=== PATIENT | female | born 1990 | race African-American/Black ===

== ENCOUNTER 2019-04-15 18:21 | Emergency (ER) | payer SELFPAY ==
--- NOTE | ~2019-04-15 | CT_ITS ---
EXAMINATION: CT abdomen pelvis wo con DATE: 04/15/2019 21:27 INDICATION: Epigastric pain TECHNIQUE: Computed tomography (CT) of the abdomen and pelvis was performed without intravenous contr ast. The dose-length product was 1122.17 mGy-cm. Automated exposure control and iterative reconstruct ion technique were employed. COMPARISON: None. FINDINGS: Lung bases are unremarkable. Heart size normal. No significant pleural or pericardial effus ion. The liver, spleen, pancreas, adrenal glands and kidneys are unremarkable. Gallbladder is present . No free air or free fluid. No hydronephrosis. Nonenlarged retroperitoneal lymph nodes are likely re active. Normal gas-filled appendix. No bowel obstruction. No abnormal pelvic masses or fluid collecti ons. No acute osseous abnormality. IMPRESSION: 1. No acute abdominal abnormality. Reviewed, dictated and finalized at location A. R DESIGNER
[2019-04-15 18:29] VITALS: BP 132/96; PULSE 85; RESP 18; TEMP 37.3; O2SAT 100
[2019-04-15 18:44] LABS: Basophils Percent Auto 0.3 % (0.2-1.2); Eosinophils Percent Auto 0.5 % (0-4.4); Hematocrit 36.6 % (37.0-47.0); Immature Granulocyte Absolute 0.02 K/mm3 (0.00-0.031); Immature Granulocyte Percent A 0.3 % (0-0.5); Lymphocytes Percent Auto 17.6 % (18.3-44.2); Mean Corpuscular HGB Conc 32.8 g/dl (32-36); Mean Corpuscular Hemoglobin 30.5 pg (26-34); Mean Corpuscular Volume 93.1 fl (80-100); Mean Platelet Volume 9.9 fl (7.4-10.4); Monocytes Absolute Auto 0.4 K/mm3 (0.1-0.6); Monocytes Percent Auto 4.7 % (2.6-8.5); Neutrophils Absolute Auto 5.7 K/mm3 (1.3-6.7); Neutrophils Percent Auto 76.6 % (45.5-73.1); Platelet Count Result 248 k/mm3 (150-375); Red Blood Count 3.93 M/mm3 (4.2-5.4); Red Cell Distribution Width 14.6 % (11.5-14.5); White Blood Count 7.4 K/mm3 (4.5-10.0)
[2019-04-15 19:00] LABS: Alanine Aminotransferase 23 U/L (4-35); Albumin Level 4.1 g/dL (3.5-5.1); Alkaline Phosphatase 68 U/L (38-126); Aspartate Amino Transferase 46 U/L (14-36); Bilirubin,Total 1.1 mg/dL (0.2-1.3); Blood Urea Nitrogen 7 mg/dL (7-17); Calcium 8.9 mg/dL (8.4-10.2); Carbon Dioxide 25 mmol/L (22-30); Chloride 104 mmol/L (98-107); Estimated Glomerular Filt Rate > 60; Glucose 112 mg/dL (65-105); Lipase 258 U/L (23-300); Potassium 3.5 mmol/L (3.4-5.0); Sodium 140 mmol/L (137-145)
[2019-04-15 20:04] VITALS: BP 143/95; PULSE 85; RESP 18; O2SAT 100
--- NOTE | 2019-04-15 20:23 | ED.ABDPAIN ---
HPI - Abdominal Pain General Chief Complaint: Abdominal Pain Stated Complaint: ABD PAIN Time Seen by Provider: 04/15/19 20:04 Source: patient and RN notes reviewed Mode of arrival: ambulatory Limitations: no limitations History of Present Illness HPI narrative: Pt is a 28 y/o female with a Hx of IBS, who presents to the ED with c/o epigastric pain starting this evening. She notes that she suddenly developed an extreme pain in her epigastric region shortly after eating dinner this evening. Pt describes her pain as cramping, and initially rated her pain at 12/10. She notes that her symptoms felt similar to acid reflux, but states that her symptoms didn't alleviate after taking an antacid. Pt notes that her pain intermittently radiates into her suprapubic region. She reports nausea accompanying her pain, but denies any vomiting, fever, or chills. She notes that her pain is slightly alleviated currently, stating that her pain is now a 4/10. MD elicited complaint: abdominal pain Onset (ago): hour(s) (several) Location: epigastric Pain scale (0-10): 4 Quality: cramping Radiation: suprapubic Associated symptoms: nausea Treatments prior to arrival: antacids Related Data Allergies Allergy/AdvReac Type Severity Reaction Status Date / Time No Known Allergies Allergy Mild Verified 10/11/09 14:16 Review of Systems Review of Systems: All systems reviewed & are unremarkable except as noted in HPI and below Constitutional: Constitutional: Denies chills and Denies fever(s) Gastrointestinal: Gastrointestinal: Reports abdominal pain (epigastric pain radiating into suprapubic region), Reports nausea and Denies vomiting PMFSH Past Medical History Medical History Anxiety Asthma Depression HTN (hypertension) IBS (irritable bowel syndrome) Surgical History Surgical History No significant past surgical history Family History Family History (Updated 10/22/13 @ 07:13 by DOCTOR UNKNOWN) Father Cerebrovascular accident Family history of coronary artery disease Grandparent Cerebrovascular accident Diabetes mellitus Other Family history of malignant neoplasm of male breast Social History Social History Smoking status: Never smoker Second hand tobacco smoke exposure: No Alcohol intake: current Gender identity (if verbalized by the patient): Female Exam Const: General: cooperative, healthy appearing, comfortable, no acute distress, well developed, alert and awake; No confusion Nutritional Appearance: obese Orientation/consciousness: oriented to person, oriented to place, oriented to time, patient oriented x3 and No confusion Limitations: no limitations HENMT: Head: normal to inspection, normocephalic and atraumatic Chest: Chest palpation & inspection: normal inspection of the chest Resp: Effort & Inspection: normal respiratory effort, able to speak in complete sentences, no respiratory distress and not tachypneic Auscultation: clear to auscultation bilaterally, no crackles, no rales, no rhonchi and no wheezes Cardio: Rate: regular rate Rhythm: regular rhythm GI: GI Palp: Yes Tenderness to palpation present (GI) (epigastric tenderness) Auscultation: normal bowel sounds Skin: General skin exam: normal color, no rashes or lesions noted, elasticity normal and turgor normal Neuro: General: oriented to person, oriented to place, oriented to time, patient oriented x3, tone normal, moves all extremities, Normal light touch and pain sensation, no meningeal signs, no focal motor deficits, CN's II-XI intact bilaterally and No confusion Cranial nerves: Yes Equal, round and reactive pupils present Speech: No Abnormal speech present Sensory Exam: No Sensory deficit (Neuro) Extrem: General: normal to inspection, full ROM and capillary refill normal Psych: Appearance: grossly norm
[2019-04-15] MEDS: BELLADONNA ALK/PHENOB ELIX 10 ML, MAG HYDROX/ALUMINUM HYD/SIMETH 30 ML, LIDOCAINE HCL 2... PO (21:00)
[2019-04-15 21:52] VITALS: BP 130/73; PULSE 84; RESP 18; TEMP 36.8; O2SAT 99
[2019-04-15 22:20] LABS: Add Urine Microscopic? YES; Appearance Urine Cloudy (Clear); Bacteria Urine Trace /hpf; Bilirubin Urine Negative (Negative); Blood Urine Negative (Negative); Color Urine Yellow (Yellow); Glucose Urine UA Negative (Negative); Ketones Urine Negative (Negative); Leukocyte Esterase Ur Trace LEU/UL (Negative); Mucus Urine Heavy /lpf; Nitrate Urine Negative (Negative); Protein Urine 1+ mg/dL (Negative); Specific Grav Ur 1.019 (1.001-1.035); Squamous Epithelial Cell Urine Many /hpf (Few)
[2019-04-15 22:57] VITALS: BP 124/77; PULSE 84; RESP 20; O2SAT 100
== END 2019-04-15 22:59 | disposition home or self-care (01) ==
PROVIDERS: Emergency Medicine; Emergency Provider Emergency Medicine
DX: K29.00 Acute gastritis without bleeding (principal); J45.909 Unspecified asthma, uncomplicated; I10 Essential (primary) hypertension; K58.8 Other irritable bowel syndrome
CPT/HCPCS: 36415; 74176; 80053; 81001; 83690; 85025; 99284; A9270

== ENCOUNTER 2020-02-12 08:29 | Emergency (ER) | payer MEDICAID, SELFPAY ==
--- NOTE | ~2020-02-12 | US_ITS ---
US pelvic complete w TV DATE: 02/12/2020 10:31 INDICATION: Pelvic pain TECHNIQUE: Real-time imaging via transabdominal and transvaginal approaches COMPARISON: 04/15/2019 CT abdomen pelvis 05/14/2017 pelvic ultrasound FINDINGS: The uterus is normal in size. The central endometrial echo complex measures up to approxima tely 5.5 mm AP dimension. The right ovary measures 2.5 x 1.5 x 2.7 mm. The left ovary measures 1.4 x 0.8 x 0.8 mm. There is a 10 x 13 mm right ovarian cyst. There is a smaller 4 x 6 mm right ovarian cyst. There is bl ood flow to both ovaries. No pelvic mass or abnormal pelvic fluid collection is detected. IMPRESSION: Right ovarian cysts Reviewed, dictated and finalized at Location A. Reviewed, dictated and finalized at location B. HASING CLERK IMPRESSION: Right ovarian cysts
[2020-02-12 08:37] VITALS: BP 148/104; PULSE 99; RESP 16; TEMP 35.8; O2SAT 99
--- NOTE | 2020-02-12 08:41 | ED.ABDPAIN ---
HPI - Abdominal Pain General Chief Complaint: Abdominal Pain Stated Complaint: abd pain Time Seen by Provider: 02/12/20 08:40 Source: patient Mode of arrival: ambulatory Limitations: no limitations History of Present Illness HPI narrative: Patient is a 29-year-old female with a history of gastritis, ovarian cysts, who presents for evaluation of lower pelvic pain. Patient states she has had a 1 month history of intermittent lower abdominal pain, cramping mostly in the pelvic region, associated with nausea and vomiting today which prompted her visit to the ER. She has had decreased oral intake. She states the pain is dull, aching in nature. She denies new vaginal discharge, bleeding or spotting. Patient follows with Dr. Sally Jefferson, has a pelvic ultrasound which is ordered, but they were trialing hormonal therapy, oral contraceptive to see if that would perhaps improve her symptoms over the past month. Because it did not, she was prompted to come to the emergency department today. She denies fever, chills, cough or shortness of breath. She is amenorrheic since 2016 due to a [address]planon in place. She denies any new sexual partners. She has a history of chlamydia which was treated. Related Data Home Medications Medication Instructions Recorded Confirmed albuterol sulfate 90 mcg/actuation 1 inh INHALATION Q4H 12/29/19 aerosol inhaler etonogestrel 68 mg subdermal 1 implant SUBDERMAL ONCE 12/29/19 implant Allergies Allergy/AdvReac Type Severity Reaction Status Date / Time No Known Allergies Allergy Mild Verified 02/02/20 10:45 Review of Systems Review of Systems: Narrative: CONSTITUTIONAL: Denies fever, chills, or sweats. EYES: Denies visual changes, redness, or discharge. ENT: Denies rhinorrhea, congestion, sore throat, or otalgia. CARDIOVASCULAR: Denies chest pain, palpitations, or edema. RESPIRATORY: Denies cough or dyspnea. GASTROINTESTINAL: Reports pelvic pain, nausea, vomiting, denies diarrhea GENITOURINARY: Denies dysuria or hematuria. SKIN: Denies rash or itching. MUSCULOSKELETAL: Denies back pain, joint pain, or myalgia. NEUROLOGIC: Denies headache, numbness, or weakness. [facility] Past Medical History Medical History (Updated 02/12/20 @ 11:28 by Lizy Mayo MD) Anxiety Asthma Depression HTN (hypertension) IBS (irritable bowel syndrome) Pelvic pain Surgical History Surgical History No significant past surgical history Family History Family History Father Cerebrovascular accident Family history of coronary artery disease Grandparent Cerebrovascular accident Diabetes mellitus Other Family history of malignant neoplasm of male breast Social History Social History Smoking status: Never smoker Second hand tobacco smoke exposure: No Alcohol intake: current Gender identity (if verbalized by the patient): Female Exam Narrative: Exam Narrative: GENERAL: Awake, alert, conversant HEAD: Normocephalic, atraumatic. EYES: PERRLA and EOMI. ENT: Nares clear, no rhinorrhea or epistaxis. Mucous membranes moist. NECK: Supple. CHEST: No respiratory distress, breathing even and non labored HEART: Regular rate, sinus rhythm ABDOMEN:Non distended, nontender on exam, no reproducible tenderness in any of the 4 quadrants, no suprapubic tenderness, no rebound, no guarding : Labia majora and minora normal without lesions. Vagina without blood. No cervical motion tenderness. No adnexal tenderness or fullness bilaterally. No discharge present. EXTREMITIES: Normal range of motion. No edema. SKIN: Warm, dry, no rash. NEURO:No focal deficits. Alert and oriented x3 Course Vital Signs Vital signs: Vital Signs Temperature 35.8 C L 02/12/20 08:37 Pulse Rate 99 02/12/20 08:37 Respiratory Rate 16 02/12/20 08:37 Blood Pres
--- NOTE | 2020-02-12 08:47 | PC.NURSE ---
ATTEMPTED IV AT THIS TIME, PT REPORTS SHE IS DIFFICULT STICK, AFTER INSERTING NEEDLE PT STATES TO TAKE IT OUT RIGHT NOW, IM TOO HOT. i REMOVED NEEDLE AND PT LAUGHS AND SAYS I CAN'T DO THIS. RN ISAIAH AWARE, STATES SHE WILL SEE PT.
[2020-02-12 10:05] LABS: Basophils Percent Auto 0.3 % (0.2-1.2); Eosinophils Absolute Auto 0.1 K/mm3 (0-0.3); Eosinophils Percent Auto 0.9 % (0-4.4); Hematocrit 40.2 % (37.0-47.0); Hemoglobin 13.1 g/dL (12.0-15.0); Immature Granulocyte Absolute 0.02 K/mm3 (0.00-0.031); Immature Granulocyte Percent A 0.3 % (0-0.5); Lymphocytes Absolute Auto 1.65 K/mm3 (0.9-3.2); Lymphocytes Percent Auto 21.2 % (18.3-44.2); Mean Corpuscular HGB Conc 32.6 g/dl (32-36); Mean Corpuscular Hemoglobin 30.4 pg (26-34); Mean Corpuscular Volume 93.3 fl (80-100); Monocytes Absolute Auto 0.4 K/mm3 (0.1-0.6); Monocytes Percent Auto 5.7 % (2.6-8.5); Neutrophils Absolute Auto 5.6 K/mm3 (1.3-6.7); Neutrophils Percent Auto 71.6 % (45.5-73.1); Platelet Count Result 320 k/mm3 (150-375); Red Blood Count 4.31 M/mm3 (4.2-5.4); Red Cell Distribution Width 14.2 % (11.5-14.5); White Blood Count 7.8 K/mm3 (4.5-10.0)
[2020-02-12 10:15] LABS: Add Urine Microscopic? YES; Appearance Urine Cloudy (Clear); Bacteria Urine Trace /hpf; Bilirubin Urine Negative (Negative); Blood Urine Negative (Negative); Calcium Oxalate Crystals Urine Present /hpf; Color Urine Yellow (Yellow); Glucose Urine UA Negative (Negative); Ketones Urine Negative (Negative); Leukocyte Esterase Ur Negative LEU/UL (Negative); Mucus Urine Heavy /lpf; Nitrate Urine Negative (Negative); Protein Urine Negative (Negative); RBC Urine 0-2 /hpf (0-2); Specific Grav Ur 1.024 (1.001-1.035); Squamous Epithelial Cell Urine Many /hpf (Few); WBC Urine 0-3 /hpf
[2020-02-12 10:22] LABS: Alanine Aminotransferase 15 U/L (4-35); Albumin Level 4.5 g/dL (3.5-5.1); Alkaline Phosphatase 71 U/L (38-126); Anion Gap 7 mmol/L (8-16); Aspartate Amino Transferase 22 U/L (14-36); Bilirubin,Total 0.6 mg/dL (0.2-1.3); Blood Urea Nitrogen 10 mg/dL (7-17); Calcium 9.5 mg/dL (8.4-10.2); Carbon Dioxide 28 mmol/L (22-30); Chloride 108 mmol/L (98-107); Estimated CRCL calculation 108 ml/min; Estimated Glomerular Filt Rate > 60; Glucose 102 mg/dL (65-105); Lipase 191 U/L (23-300); Potassium 3.5 mmol/L (3.4-5.0); Sodium 143 mmol/L (137-145)
[2020-02-12 11:05] VITALS: BP 151/89; PULSE 71; RESP 18; O2SAT 100
== END 2020-02-12 11:47 | disposition home or self-care (01) ==
PROVIDERS: Emergency Provider Emergency Medicine
DX: R10.2 Pelvic and perineal pain (principal); N83.201 Unspecified ovarian cyst, right side; I10 Essential (primary) hypertension; J45.909 Unspecified asthma, uncomplicated
CPT/HCPCS: 36415; 76830; 76856; 80053; 81001; 81025; 83690; 85025; 87070; 87491; 87591; 87808; 99284

== ENCOUNTER 2020-02-21 11:12 | Emergency (ER) | payer MEDICAID, SELFPAY ==
--- NOTE | ~2020-02-21 | CT_ITS ---
EXAMINATION: CT abdomen pelvis wo con EXAM DATE: 02/21/2020 12:54 INDICATION: Possible hernias. Low abdominal pain. TECHNIQUE: Spiral CT of the abdomen and pelvis was performed without contrast. Axial, coronal and s agittal images were reviewed. The dose-length product (DLP) for this examination was 1237.74 mGy-cm. The exposure was tailored according to patient size (auto mA exposure control), and iterative recon struction (ASIR) was used as additional dose reduction technique. Comparison is made to prior examina tion from 10/14/2019. FINDINGS: The liver, spleen, adrenal glands and pancreas are unremarkable. Gallbladder is unremarkab le. No biliary obstruction. There is no nephrolithiasis or hydronephrosis. The uterus and ovaries are unremarkable, no adnexal mass. The bladder is unremarkable. There is no retroperitoneal or pel jarrod lymphadenopathy. No abdominal wall hernias. The appendix is normal. The stomach and small bowel are unremarkable. There is expected amount of c olonic stool. No free intraperitoneal gas. The heart is normal in size. There are no pericardial or pleural effusions. There are punctate basilar nodules with mild diffuse groundglass attenuation to the lungs. Nonspecifi c pneumonitis (hypersensitivity?). Small amount of right basilar subsegmental atelectasis. There are no osteoblastic or osteolytic lesions identified. IMPRESSION: 1. No acute intra-abdominal findings. No hernia. 2. Scattered basilar punctate nodules, diffuse mild groundglass attenuation are nonspecific pneumonit is. Reviewed, dictated and finalized at location A. PL SQL DEVELOPER IMPRESSION: 1. No acute intra-abdominal findings. No hernia. 2. Scattered basilar punctate nodules, diffuse mild groundglass attenuation are nonspecific pneumonitis.
[2020-02-21 11:15] VITALS: BP 145/102; PULSE 95; RESP 18; TEMP 36.2; O2SAT 100
--- NOTE | 2020-02-21 11:29 | ED.GENADULT ---
HPI - General Adult General Chief complaint: Abdominal Pain Stated complaint: abd pain Time Seen by Provider: 02/21/20 11:23 Source: patient Mode of arrival: ambulatory Limitations: no limitations History of Present Illness HPI narrative: This 29-year-old female is here for evaluation again of chronic lower pelvic pain. She has been seen by this emergency room as well as a business support professional for the same complaint. She states that the pain gets worse the longer she stands. It is across her lower pelvis. She has been taking the previously prescribed pain medication with no relief. She has had an ultrasound that showed ovarian cysts, and a CT of the abdomen in August that showed no pathology. She denies any bladder or bowel dysfunction, no vaginal discharge, no shortness of breath or chest pain. Onset (ago): week(s) Associated symptoms: nausea/vomiting Treatments prior to arrival: other (previously prescribed pain medication) Related Data Home Medications Medication Instructions Recorded Confirmed albuterol sulfate 90 mcg/actuation 1 inh INHALATION Q4H 12/29/19 aerosol inhaler etonogestrel 68 mg subdermal 1 implant SUBDERMAL ONCE 12/29/19 implant Allergies Allergy/AdvReac Type Severity Reaction Status Date / Time No Known Allergies Allergy Mild Verified 02/21/20 11:41 Review of Systems Review of Systems: All systems reviewed & are unremarkable except as noted in HPI and below PMFSH Past Medical History Medical History Anxiety Asthma Depression HTN (hypertension) IBS (irritable bowel syndrome) Pelvic pain Surgical History Surgical History No significant past surgical history Family History Family History Father Cerebrovascular accident Family history of coronary artery disease Grandparent Cerebrovascular accident Diabetes mellitus Other Family history of malignant neoplasm of male breast Social History Social History Smoking status: Never smoker Second hand tobacco smoke exposure: No Alcohol intake: current Gender identity (if verbalized by the patient): Female Exam Const: General: no acute distress and alert HENMT: Head: normal to inspection Eyes: Pupils: Equal, round and reactive pupils present Resp: Effort & Inspection: normal respiratory effort Auscultation: clear to auscultation bilaterally Cardio: Rate: regular rate Rhythm: regular rhythm GI: GI Palp: Yes Soft to palpation and Yes Tenderness to palpation present (GI) (lower pelvis) Auscultation: normal bowel sounds Other: panus and difficulty to asses for hernia : General: Yes no CVA tenderness Skin: General skin exam: normal color Extrem: General: normal to inspection and no pedal edema Psych: Mental Status: mental status grossly normal Course Course Emergency Course: Radiology and lab results reviewed with patient. From lab standpoint she does have a slightly elevated lipase, no evidence of gallstones on CT. Given her nausea in the morning recommend that she follow a low-fat diet for possible gallbladder disease. As for her pain that worsens as she stands for long periods of time, her CT did not show any evidence of hernia. Recommend that she follow-up with a primary care physician for possible referral to physical therapy as this may be a core issue. Continue to take ibuprofen or Tylenol for the pain. Plan discussed with the patient she agrees. Vital Signs Vital signs: Vital Signs Temperature 36.2 C L 02/21/20 11:15 Pulse Rate 95 02/21/20 11:15 Respiratory Rate 18 02/21/20 11:15 Blood Pressure 145/102 H 02/21/20 11:15 Pulse Oximetry 100 02/21/20 11:15 Temperature 36.2 C L 02/21/20 11:15 Pulse Rate 95 02/21/20 11:15 Respiratory Rate 18 02/21/20 11:15 B
[2020-02-21 11:41] LABS: Basophils Percent Auto 0.2 % (0.2-1.2); Eosinophils Absolute Auto 0.1 K/mm3 (0-0.3); Eosinophils Percent Auto 0.6 % (0-4.4); Hematocrit 39.5 % (37.0-47.0); Hemoglobin 13.2 g/dL (12.0-15.0); Immature Granulocyte Absolute 0.03 K/mm3 (0.00-0.031); Immature Granulocyte Percent A 0.3 % (0-0.5); Lymphocytes Absolute Auto 1.79 K/mm3 (0.9-3.2); Lymphocytes Percent Auto 18.2 % (18.3-44.2); Mean Corpuscular HGB Conc 33.4 g/dl (32-36); Mean Corpuscular Volume 92.7 fl (80-100); Mean Platelet Volume 9.6 fl (7.4-10.4); Monocytes Absolute Auto 0.6 K/mm3 (0.1-0.6); Monocytes Percent Auto 6.5 % (2.6-8.5); Neutrophils Absolute Auto 7.3 K/mm3 (1.3-6.7); Neutrophils Percent Auto 74.2 % (45.5-73.1); Platelet Count Result 312 k/mm3 (150-375); Red Blood Count 4.26 M/mm3 (4.2-5.4); Red Cell Distribution Width 14.5 % (11.5-14.5); White Blood Count 9.8 K/mm3 (4.5-10.0)
[2020-02-21 11:53] LABS: Add Urine Microscopic? YES; Alanine Aminotransferase 15 U/L (4-35); Albumin Level 4.2 g/dL (3.5-5.1); Alkaline Phosphatase 69 U/L (38-126); Anion Gap 9 mmol/L (8-16); Appearance Urine Cloudy (Clear); Aspartate Amino Transferase 17 U/L (14-36); Bilirubin Urine Negative (Negative); Bilirubin,Total 0.6 mg/dL (0.2-1.3); Blood Urea Nitrogen 11 mg/dL (7-17); Blood Urine Negative (Negative); Calcium 8.9 mg/dL (8.4-10.2); Calcium Oxalate Crystals Urine Present /hpf; Carbon Dioxide 25 mmol/L (22-30); Chloride 107 mmol/L (98-107); Color Urine Yellow (Yellow); Estimated CRCL calculation 120 ml/min; Estimated Glomerular Filt Rate > 60; Glucose 104 mg/dL (65-105); Glucose Urine UA Negative (Negative); Ketones Urine Negative (Negative); Leukocyte Esterase Ur Negative LEU/UL (Negative); Lipase 406 U/L (23-300); Nitrate Urine Negative (Negative); Potassium 3.6 mmol/L (3.4-5.0); Protein Urine 1+ mg/dL (Negative); Sodium 141 mmol/L (137-145); Squamous Epithelial Cell Urine Rare /hpf (Few); WBC Urine 0-3 /hpf
[2020-02-21 13:38] VITALS: BP 138/83; PULSE 68; RESP 20; O2SAT 99
== END 2020-02-21 13:39 | disposition home or self-care (01) ==
PROVIDERS: Emergency Provider Emergency Medicine
DX: R10.2 Pelvic and perineal pain (principal); R11.0 Nausea; J45.909 Unspecified asthma, uncomplicated; I10 Essential (primary) hypertension; K58.9 Irritable bowel syndrome, unspecified
CPT/HCPCS: 36415; 74176; 80053; 81001; 81025; 83690; 85025; 99284

== ENCOUNTER 2020-06-17 07:27 | Outpatient (CLI) | payer BC, SELFPAY ==
--- NOTE | ~2020-06-17 | CT_ITS ---
EXAMINATION: CT abdomen pelvis w con DATE: 06/17/2020 07:57 INDICATION: Abdominal pain. TECHNIQUE: Computed tomography (CT) of the abdomen and pelvis was performed with 100 mL Omnipaque 350 intravenous contrast. Automated exposure control and iterative reconstruction technique were employe d. The dose-length product was 886.79 mGy-cm. COMPARISON: CT abdomen and pelvis 02/21/2020 FINDINGS: The visualized portions of the lung bases demonstrate mild atelectasis. No pleural effusion . The heart size is normal. No pericardial effusion. The liver, gallbladder, and pancreas are normal. Calcifications in the spleen are consistent with old granulomatous disease. The adrenal glands and k idneys are normal. There are no dilated loops of bowel. The appendix is normal. There are no patholog ically enlarged lymph nodes. There is no free intraperitoneal fluid. There is mild thoracolumbar spon dylosis. IMPRESSION: 1. No etiology for the patient's symptoms. Reviewed, dictated and finalized at location D.
[2020-06-17 07:49] LABS: Estimated Glomerular Filt Rate > 60
== END 2020-06-17 07:28 | disposition home or self-care (01) ==
LOC: ANHIMG 07:30
PROVIDERS: PCP Emergency Medicine; Visit Provider Emergency Medicine
DX: R10.9 Unspecified abdominal pain (principal)
CPT/HCPCS: 74177; Q9967

== ENCOUNTER 2020-06-24 07:54 | Outpatient (CLI) | payer BC, SELFPAY ==
--- NOTE | ~2020-06-24 | NM_ITS ---
EXAM: NM gastric emptying study DATE: 06/24/2020 12:43 INDICATION: Abdominal pain. TECHNIQUE: A gastric emptying study was performed using the methodology of Fabian HAMMOND, et al. J Nucl Med 2007; 48:568-572. The patient was given a meal consisting of 2 scrambled eggs labeled with 0.964 mCi Tc-99m sulfur colloid, 2 slices of toast, two packages of jam, and approximately 120 mL of water . Simultaneous anterior and posterior 1-min images of the abdomen were obtained with the patient supi ne at multiple time points over a total period of 4 hours. The geometric mean of anterior and posteri or views was determined, and the percentage retention was calculated for each time point. COMPARISON: CT abdomen and pelvis 06/17/2020 FINDINGS: Gastric retention of the radiotracer-labeled meal was 51%, 29%, and 15% at the 1-hour, 2-h our, and 4-hour time points, respectively. With this technique, apparent rapid gastric emptying is vee ggested by <30% gastric retention at 1 hour. Delayed gastric emptying is defined by gastric retention of >90% at 1 hour, >60% retention at 2 hours, or >10% retention at 4 hours. IMPRESSION: 1. Delayed gastric emptying. Reviewed, dictated and finalized at location A.
== END 2020-06-24 07:55 | disposition home or self-care (01) ==
PROVIDERS: PCP Emergency Medicine; Visit Provider Emergency Medicine
DX: R10.9 Unspecified abdominal pain (principal); K30 Functional dyspepsia
CPT/HCPCS: 78264; A9541

== ENCOUNTER 2020-07-12 10:04 | Outpatient (CLI) | payer BC, SELFPAY ==
[2020-07-12 10:47] LABS: Alanine Aminotransferase 15 U/L (4-35); Albumin Level 3.9 g/dL (3.5-5.1); Alkaline Phosphatase 61 U/L (38-126); Amylase 83 U/L (30-110); Anion Gap 5 mmol/L (8-16); Aspartate Amino Transferase 22 U/L (14-36); Bilirubin,Total 0.4 mg/dL (0.2-1.3); Blood Urea Nitrogen 12 mg/dL (7-17); Carbon Dioxide 26 mmol/L (22-30); Chloride 111 mmol/L (98-107); Cholesterol 183 mg/dL (0-200); Estimated Glomerular Filt Rate > 60; Glucose 101 mg/dL (65-105); HDL Direct 35 mg/dL; Lipase 267 U/L (23-300); Potassium 3.7 mmol/L (3.4-5.0); Sodium 142 mmol/L (137-145); Triglycerides 80 mg/dL (<150)
[2020-07-12 10:58] LABS: LDL Cholesterol Direct 125 mg/dL
[2020-07-12 11:19] LABS: Add Urine Microscopic? YES; Amorphous Sediment Urine Few; Appearance Urine Cloudy (Clear); Bacteria Urine Trace /hpf; Bilirubin Urine Negative (Negative); Blood Urine Negative (Negative); Calcium Oxalate Crystals Urine Many /hpf; Color Urine Yellow (Yellow); Glucose Urine UA Negative (Negative); Ketones Urine Negative (Negative); Leukocyte Esterase Ur Trace LEU/UL (Negative); Mucus Urine Few /lpf; Nitrate Urine Positive (Negative); Protein Urine 1+ mg/dL (Negative); Specific Grav Ur 1.026 (1.001-1.035); Squamous Epithelial Cell Urine Many /hpf (Few); Transitional Epi Cells Urine Rare /hpf (None Seen)
== END 2020-07-12 10:05 | disposition home or self-care (01) ==
PROVIDERS: PCP Emergency Medicine; Visit Provider Surgery
DX: R10.30 Lower abdominal pain, unspecified (principal)
CPT/HCPCS: 36415; 80053; 80061; 81001; 82150; 83690; 87077; 87086; 87088; 87186

== ENCOUNTER 2020-07-16 09:05 | Outpatient (CLI) | payer BC, SELFPAY ==
--- NOTE | ~2020-07-16 | US_ITS ---
EXAMINATION: US abdomen limited DATE: 07/16/2020 09:38 INDICATION: Right upper quadrant pain TECHNIQUE: Multiple grayscale and Doppler ultrasound images of the abdomen were obtained. COMPARISON: None available FINDINGS: Bowel gas obscures visualization of the pancreas. The visualized portions of the pancreas a re unremarkable. The liver is normal with normal echogenicity and echotexture. No surface nodularity. Normal hepatopetal flow in the main portal vein. The gallbladder is normal with no abnormal wall thi ckening, pericholecystic fluid or stones. The normal common bile duct measures 4 mm. There was no son ographic Barroso sign. IMPRESSION: 1. Normal sonographic study of the gallbladder. Reviewed, dictated and finalized at location A.
== END 2020-07-16 09:06 ==
LOC: MICIMG 09:06
PROVIDERS: Visit Provider Surgery
DX: R10.13 Epigastric pain (principal)
CPT/HCPCS: 76705

== ENCOUNTER 2020-07-19 17:13 | Emergency (ER) | payer BC, SELFPAY ==
[2020-07-19 18:47] VITALS: BP 154/94; PULSE 109; RESP 19; TEMP 36.6; O2SAT 100
[2020-07-19 19:20] LABS: Add Urine Microscopic? YES; Appearance Urine Cloudy (Clear); Bacteria Urine Trace /hpf; Bilirubin Urine Negative (Negative); Blood Urine Negative (Negative); Color Urine Yellow (Yellow); Glucose Urine UA Negative (Negative); Ketones Urine Negative (Negative); Leukocyte Esterase Ur Negative LEU/UL (Negative); Mucus Urine Few /lpf; Nitrate Urine Negative (Negative); Protein Urine Negative (Negative); RBC Urine 0-2 /hpf (0-2); Specific Grav Ur 1.017 (1.001-1.035); Squamous Epithelial Cell Urine Rare /hpf (Few); WBC Urine 0-3 /hpf
[2020-07-19 20:49] VITALS: BP 150/92; PULSE 86; RESP 18; TEMP 37.2; O2SAT 100
--- NOTE | 2020-07-19 21:02 | ED.ABDPAIN ---
HPI - Abdominal Pain General Chief Complaint: Abdominal Pain Stated Complaint: Abd Pain / Vomiting Time Seen by Provider: 07/19/20 20:49 Source: patient Mode of arrival: ambulatory Limitations: no limitations History of Present Illness HPI narrative: Patient is a 29 year old female who presents with abdominal pain and nausea. She reports symptoms have been consistent for 6 months. Patient reports seeing multiple doctors and having numerous scans and tests completed without diagnosis. Patient reports most recently seen by Dr. Guzman who recommended patient follow with Dr. Paulson for further evaluation. Patient reports nausea without vomiting and abdominal cramping. She denies other complaints at this time. MD elicited complaint: abdominal pain Related Data Home Medications Medication Instructions Recorded Confirmed albuterol sulfate 90 mcg/actuation 1 inh INHALATION Q4H 12/29/19 07/12/20 aerosol inhaler etonogestrel 68 mg subdermal 1 implant SUBDERMAL ONCE 12/29/19 07/12/20 implant amlodipine 5 mg tablet 5 mg PO DAILY 04/15/20 07/12/20 cholecalciferol (vitamin D3) 1,250 1,250 mcg PO WEEKLY 04/15/20 07/12/20 mcg (50,000 unit) capsule omeprazole 20 mg capsule,delayed 20 mg PO DAILY 04/15/20 07/12/20 release Allergies Allergy/AdvReac Type Severity Reaction Status Date / Time No Known Allergies Allergy Mild Verified 07/12/20 09:04 Review of Systems Review of Systems: Narrative: CONSTITUTIONAL: Denies fever, chills, or sweats. EYES: Denies visual changes, redness, or discharge. ENT: Denies rhinorrhea, congestion, sore throat, or otalgia. CARDIOVASCULAR: Denies chest pain, palpitations, or edema. RESPIRATORY: Denies cough or dyspnea. GASTROINTESTINAL: Reports abdominal pain, nausea, vomiting, denies diarrhea. GENITOURINARY: Denies dysuria or hematuria. SKIN: Denies rash or itching. MUSCULOSKELETAL: Denies back pain, joint pain, or myalgia. NEUROLOGIC: Denies headache, numbness, dizziness, or weakness. PSYCHIATRIC: Denies anxiety or depression. [facility] Past Medical History Medical History Anxiety Asthma Depression GERD (gastroesophageal reflux disease) HTN (hypertension) IBS (irritable bowel syndrome) Pelvic pain Stomach ulcer Surgical History Surgical History No significant past surgical history Family History Family History Father Cerebrovascular accident Family history of coronary artery disease Heart disease Liver cancer Grandparent Cerebrovascular accident Diabetes mellitus Other Cancer Other Family history of malignant neoplasm of male breast Social History Social History Smoking status: Current every day smoker Second hand tobacco smoke exposure: No Alcohol intake: current Gender identity (if verbalized by the patient): Female Comments At the time of signature, I have reviewed and agree with nursing past medical, surgical, social, and family history unless otherwise noted. Please see nursing chart for further information. There is no relevant family history pertinent to the presenting complaint. Exam Narrative: Exam Narrative: GENERAL: Well-appearing, well-nourished, and in no acute distress. HEAD: Normocephalic, atraumatic. EYES: EOMI. No redness or drainage. Conjunctiva are normal. ENT: Mucous membranes pink and moist. Nares clear. No rhinorrhea. TMs normal bilaterally. Throat normal. Uvula midline. NECK: AROM. Supple. No lymphadenopathy. CHEST: No respiratory distress. Clear to auscultation. HEART: Regular rate and rhythm. No murmur appreciated. Normal peripheral pulses. GI: Soft, nontender without rebound, or guarding. No distention. Bowel sounds normal in all quadrants. MUSCULOSKELETAL: No bony tenderness. EXTREMITIES: Normal rang
--- NOTE | 2020-07-19 21:08 | ECG_ITS ---
Measurements Intervals [place] Rate: 76 P: 47 IN: 166 QRS: 5 QRSD: 94 T: -2 QT: 338 QTc: 381 Interpretive Statements SINUS RHYTHM WITH SINUS ARRHYTHMIA EARLY PRECORDIAL R/S TRANSITION NONSPECIFIC T-WAVE ABNORMALITY- ANT/INF LEADS BORDERLINE ECG Electronically Signed On 07-20-2020 6:58:40 CDT by Cm Humphries D.O.
[2020-07-19 21:26] LABS: Basophils Percent Auto 0.4 % (0.2-1.2); Eosinophils Percent Auto 0.4 % (0-4.4); Hematocrit 40.6 % (37.0-47.0); Hemoglobin 13.4 g/dL (12.0-15.0); Immature Granulocyte Absolute 0.01 K/mm3 (0.00-0.031); Immature Granulocyte Percent A 0.2 % (0-0.5); Lymphocytes Absolute Auto 2.34 K/mm3 (0.9-3.2); Lymphocytes Percent Auto 46.1 % (18.3-44.2); Mean Platelet Volume 9.4 fl (7.4-10.4); Monocytes Absolute Auto 0.4 K/mm3 (0.1-0.6); Monocytes Percent Auto 7.3 % (2.6-8.5); Neutrophils Absolute Auto 2.3 K/mm3 (1.3-6.7); Neutrophils Percent Auto 45.6 % (45.5-73.1); Platelet Count Result 315 k/mm3 (150-375); Red Blood Count 4.46 M/mm3 (4.2-5.4); Red Cell Distribution Width 14.7 % (11.5-14.5); White Blood Count 5.1 K/mm3 (4.5-10.0)
[2020-07-19] MEDS: BELLADONNA ALK/PHENOB ELIX 10 ML, MAG HYDROX/ALUMINUM HYD/SIMETH 30 ML, LIDOCAINE HCL 2... PO (21:40)
[2020-07-19 21:42] LABS: Alanine Aminotransferase 13 U/L (4-35); Albumin Level 4.4 g/dL (3.5-5.1); Alkaline Phosphatase 61 U/L (38-126); Anion Gap 7 mmol/L (8-16); Aspartate Amino Transferase 17 U/L (14-36); Bilirubin,Total 0.6 mg/dL (0.2-1.3); Blood Urea Nitrogen 5 mg/dL (7-17); Calcium 9.1 mg/dL (8.4-10.2); Carbon Dioxide 23 mmol/L (22-30); Chloride 111 mmol/L (98-107); Estimated CRCL calculation 123 ml/min; Estimated Glomerular Filt Rate > 60; Glucose 85 mg/dL (65-105); Lipase 326 U/L (23-300); Potassium 3.6 mmol/L (3.4-5.0); Sodium 141 mmol/L (137-145)
[2020-07-19] MEDS: SODIUM CHLORIDE 0.9% IV 1,000 ML 999 ML IV CONT (21:53)
[2020-07-19] MEDS: ONDANSETRON INJ 4 MG/2 ML VIAL IV PUSH (21:55)
[2020-07-19 22:00] VITALS: BP 128/74; PULSE 86; RESP 18; O2SAT 100
[2020-07-19 22:50] VITALS: BP 150/109; PULSE 81; RESP 17; O2SAT 100
== END 2020-07-19 22:50 | disposition home or self-care (01) ==
PROVIDERS: Emergency Medicine; Emergency Provider Nurse Practitioner; PCP Emergency Medicine
DX: R10.84 Generalized abdominal pain (principal); J45.909 Unspecified asthma, uncomplicated; K21.9 Gastro-esophageal reflux disease without esophagitis; I10 Essential (primary) hypertension; K58.9 Irritable bowel syndrome, unspecified; F17.210 Nicotine dependence, cigarettes, uncomplicated
CPT/HCPCS: 36415; 80053; 81001; 81025; 83690; 85025; 93005; 96361; 96374; 99284; A9270; J2405; J7030

== ENCOUNTER 2020-08-22 01:45 | Day surgery (SDC) | payer BC, SELFPAY ==
[2020-08-10 11:06] VITALS: BMI 40.3
[2020-08-22 08:23] VITALS: BP 142/95; PULSE 80; RESP 18; TEMP 35.8; O2SAT 100
--- NOTE | 2020-08-22 08:43 | WPDANESEPPF ---
Anes - Initial Pre Proc Eval Procedure: Operation Date: 08/22/20 09:15 Proposed Procedures p Colonoscopy - Fady Brown MD Date/Time: 08/22/20 08:43 Surgeon: Fady Brown MD Pre Op Diagnosis: diarrhea, abdominal pain, family hx of colon ca Patient Data Age: 29 Gender: F Height: 1.63 m Weight: 104.3 kg Last Vital Signs Temp 96.5 F L 08/22/20 08:23 Pulse 80 08/22/20 08:23 Resp 18 08/22/20 08:23 BP 142/95 H 08/22/20 08:23 Pulse Ox 100 08/22/20 08:23 Allergies Allergy/AdvReac Type Severity Reaction Status Date / Time No Known Allergies Allergy Mild Verified 08/22/20 08:21 Home Medications Medication Instructions Recorded Confirmed Type etonogestrel 68 mg subdermal 1 implant SUBDERMAL ONCE 12/29/19 08/22/20 History implant cholecalciferol (vitamin D3) 1,250 1,250 mcg PO WEEKLY 04/15/20 08/22/20 History mcg (50,000 unit) capsule ondansetron 4 mg PO Q6H PRN #20 tablet 07/19/20 08/22/20 Rx albuterol sulfate [ProAir HFA] 2 puff INHALATION QID PRN 08/10/20 08/22/20 History amlodipine 10 mg PO DAILY 08/10/20 08/22/20 History omeprazole 40 mg PO BID 08/10/20 08/22/20 History Patient hx anesthesia problems: none Family hx anesthesia problems: none PMFSH Past Medical History Medical History (Updated 07/27/20 @ 16:27 by Mile Leblanc APN-C) Anxiety Asthma Depression Elevated lipase GERD (gastroesophageal reflux disease) HTN (hypertension) IBS (irritable bowel syndrome) Pelvic pain Stomach ulcer Surgical History Surgical History No significant past surgical history Family History Family History Father Cerebrovascular accident Family history of coronary artery disease Heart disease Liver cancer Grandparent Cerebrovascular accident Diabetes mellitus Other Cancer Other Family history of malignant neoplasm of male breast Social History Social History Smoking status: Current some day smoker (marijuana) Tobacco type: cigars Second hand tobacco smoke exposure: No Additional smoking assessment comments: cigars every couple of weeks Alcohol intake: current Alcohol use details: occasional Substance use: current Substance use type: marijuana Other substance usage details: once monthly Living arrangements: with family Additional living arrangements comments: lives with mother and sister Gender identity (if verbalized by the patient): Female Spiritual care concerns: No Anes - Eval Final PreProcedure Day of Procedure 08/22/20 08:43 Patient weight: morbidly obese Heart: regular rate and rhythm Lungs: clear to auscultation Airway: Mallampati scale class II Neurological: alert and oriented Last oral intake: >/= 8 hours ASA classification: IV Emergent: no Anesthetic plan: proceed Anesthesia type and monitoring: general GIVS and standard monitoring Informed Consent: The patient's anesthetic plan and its attendant risks and benefits were discussed with the patient/family/POA. Questions were solicited and answers provided to the satisfaction of the patient/family/POA.
--- NOTE | 2020-08-22 08:59 | PM.HPGS ---
History of Present Illness History of Present Illness Consent: Risks, benefits, and alternatives have been discussed and questions answered. Patient agrees to proceed with procedure. Chief complaint: diarrhea, abdominal pain, family hx of colon ca Narrative: Zaynab Carpio is a 29 year old female who was referred because of a change in bowel habits. For about 6 months she has had intermittent but frequent abdominal pains. Often will feel like a heaviness, like a brick. This may last a few hours to a day. Accompanying that she has frequent loose stools. The pain however is not alleviated by having a bowel movement. There has been no blood in her stools. Previous testing has included an EGD showing some gastritis. This was done at [facility] Review of Systems Review of Systems: All systems reviewed & are unremarkable except as noted in HPI and below PMFSH Past Medical History Medical History Anxiety Asthma Depression Elevated lipase GERD (gastroesophageal reflux disease) HTN (hypertension) IBS (irritable bowel syndrome) Pelvic pain Stomach ulcer Surgical History Surgical History No significant past surgical history Family History Family History Father Cerebrovascular accident Family history of coronary artery disease Heart disease Liver cancer Grandparent Cerebrovascular accident Diabetes mellitus Other Cancer Other Family history of malignant neoplasm of male breast Social History Social History Smoking status: Current some day smoker (marijuana) Tobacco type: cigars Second hand tobacco smoke exposure: No Additional smoking assessment comments: cigars every couple of weeks Alcohol intake: current Alcohol use details: occasional Substance use: current Substance use type: marijuana Other substance usage details: once monthly Living arrangements: with family Additional living arrangements comments: lives with mother and sister Gender identity (if verbalized by the patient): Female Spiritual care concerns: No Meds Home Medications and Allergies Home Medications Medication Instructions Recorded Confirmed Type etonogestrel 68 mg subdermal 1 implant SUBDERMAL ONCE 12/29/19 08/22/20 History implant cholecalciferol (vitamin D3) 1,250 1,250 mcg PO WEEKLY 04/15/20 08/22/20 History mcg (50,000 unit) capsule ondansetron 4 mg PO Q6H PRN #20 tablet 07/19/20 08/22/20 Rx albuterol sulfate [ProAir HFA] 2 puff INHALATION QID PRN 08/10/20 08/22/20 History amlodipine 10 mg PO DAILY 08/10/20 08/22/20 History omeprazole 40 mg PO BID 08/10/20 08/22/20 History Allergies Allergy/AdvReac Type Severity Reaction Status Date / Time No Known Allergies Allergy Mild Verified 08/22/20 08:21 Vital Signs Vital Signs - 24 hr 08/22/20 08:23 Temperature 35.8 C L Pulse Rate 80 Respiratory Rate 18 Blood Pressure 142/95 H Pulse Oximetry 100 Exam Resp: Auscultation: clear to auscultation bilaterally Cardio: Rate: regular rate Rhythm: regular rhythm GI: GI Palp: Yes Soft to palpation and No Tenderness to palpation present (GI) Assessment and Plan Assessment and plan (1) Change in bowel habits: Code(s): R19.4 - Change in bowel habit Status: Acute Assessment and Plan: Colonoscopy with possible biopsy or polypectomy or cautery or injection of substances.
[2020-08-22] MEDS: LACTATED RINGERS 1,000 ML 150 ML IV CONT (09:02)
[2020-08-22 09:49] VITALS: BP 140/90; PULSE 84; RESP 23; O2SAT 100
[2020-08-22 09:59] VITALS: BP 149/98; PULSE 87; RESP 20; O2SAT 100
[2020-08-22 10:09] VITALS: BP 142/95; PULSE 75; RESP 18; O2SAT 100
== END 2020-08-22 10:17 | disposition home or self-care (01) ==
PROVIDERS: PCP Emergency Medicine; Visit Provider Internal Medicine Gastroenterology
PROC: 0DJD8ZZ Inspection of Lower Intestinal Tract, Via Natural or Artificial Opening Endoscopic (ICD-10-PCS; CPT 45378; principal; 2020-08-22 09:15)
DX: R19.7 Diarrhea, unspecified (principal); K57.30 Diverticulosis of large intestine without perforation or abscess without bleeding; K63.5 Polyp of colon; I10 Essential (primary) hypertension; J45.909 Unspecified asthma, uncomplicated; F41.8 Other specified anxiety disorders; Z79.51 Long term (current) use of inhaled steroids; F12.90 Cannabis use, unspecified, uncomplicated; Z72.0 Tobacco use; E66.01 Morbid (severe) obesity due to excess calories; Z68.39 Body mass index [BMI] 39.0-39.9, adult
CPT/HCPCS: 45380; 88305; J2704; J7120

== ENCOUNTER 2020-10-28 11:18 | Outpatient (CLI) | payer BC, SELFPAY ==
--- NOTE | ~2020-10-28 | MR_ITS ---
EXAMINATION: MR abdomen wo/w con DATE: 10/28/2020 12:25 INDICATION: Epigastric abdominal pain. TECHNIQUE: Magnetic resonance imaging (MRI) of the abdomen was performed without and with 20 mL Multi Karyn intravenous contrast. Sequences included coronal T2-weighted FS FSE, coronal and axial FS FIEST A, axial T2-weighted FSE, coronal LAVA-flex, axial STIR FSE, axial DWI, axial dual-echo T1-weighted F SPGR, and axial LAVA. Postcontrast sequences included coronal LAVA-flex and a time course of axial LA VA. COMPARISON: CT abdomen and pelvis 06/17/2020 FINDINGS: There are cysts in the liver measuring up to 5 mm. The gallbladder, spleen, pancreas, adrenal glands, and kidneys are normal. There are no dilated loops of bowel. There are no pathologically enlarged ly mph nodes. There is no free intraperitoneal fluid. IMPRESSION: 1. No etiology for the patient's symptoms. Reviewed, dictated and finalized at location A.
[2020-10-28 11:53] LABS: Estimated Glomerular Filt Rate > 60
== END 2020-10-28 11:19 | disposition home or self-care (01) ==
PROVIDERS: PCP Emergency Medicine; Visit Provider Nurse Practitioner Family
DX: R10.13 Epigastric pain (principal); R74.8 Abnormal levels of other serum enzymes
CPT/HCPCS: 74183; A9577

== ENCOUNTER 2020-11-12 11:10 | Emergency (ER) | payer BC, SELFPAY ==
--- NOTE | ~2020-11-12 | CT_ITS ---
EXAMINATION: CT abdomen pelvis w con INDICATION: Mid abdominal pain TECHNIQUE: Computed tomographic images of the abdomen and pelvis were obtained after the administrati on of 100 cc of Omnipaque 350 intravenous contrast. The dose-length product (DLP) was 1105.77 mGy-cm. Automated exposure control and iterative reconstruction technique were employed. COMPARISON: 06/17/2020 FINDINGS: Minimal dependent atelectasis is present in the lung bases. The heart size is normal. The l iver, spleen, pancreas, and adrenal glands are normal. The gallbladder is contracted. The kidneys are unremarkable. No pathologically enlarged abdominal or pelvic lymph nodes are identified. There is no free intraperitoneal gas or evidence of bowel obstruction. The appendix is normal. There is a tiny u mbilical hernia containing fat. There appears to be a small urachal cyst. Mild thoracolumbar spondylo sis is noted. IMPRESSION: 1. No CT correlate for the patient's symptoms. Reviewed, dictated and finalized at location A.
[2020-11-12 11:15] VITALS: BP 158/104; PULSE 99; RESP 18; TEMP 37.1; O2SAT 100
--- NOTE | 2020-11-12 11:34 | ED.ABDPAIN ---
HPI - Abdominal Pain General Chief Complaint: Abdominal Pain Stated Complaint: abd pain Time Seen by Provider: 11/12/20 11:13 Source: RN notes reviewed History of Present Illness HPI narrative: Patient presents emergency room from home for abdominal pain. Patient states pain began 3 days ago and is located in the bilateral mid abdomen described as sharp and stabbing in nature. States is associated with nausea and vomiting as well as loose stool she denies any fevers or chills chest pain shortness of breath or any symptoms states she not taking medication for the pain Related Data Home Medications Medication Instructions Recorded Confirmed etonogestrel 68 mg subdermal 1 implant SUBDERMAL ONCE 12/29/19 08/22/20 implant cholecalciferol (vitamin D3) 1,250 1,250 mcg PO WEEKLY 04/15/20 08/22/20 mcg (50,000 unit) capsule albuterol sulfate [ProAir HFA] 2 puff INHALATION QID PRN 08/10/20 08/22/20 amlodipine 10 mg PO DAILY 08/10/20 08/22/20 omeprazole 40 mg PO BID 08/10/20 08/22/20 Allergies Allergy/AdvReac Type Severity Reaction Status Date / Time No Known Allergies Allergy Mild Verified 11/12/20 11:21 Review of Systems Review of Systems: Gen.: Denies fevers or chills ENT: Denies congestion Respiratory: Denies shortness of breath or cough CV: Denies chest pain or palpitations GI: See HPI denies burning, urgency, frequency or hematuria Musculoskeletal: Denies back pain or muscle pain Neuro: Denies numbness, tingling, weakness or focal weakness Skin: Denies rash Except as documented, all other systems reviewed and negative [facility] Past Medical History Medical History Anxiety Asthma Depression Elevated lipase GERD (gastroesophageal reflux disease) HTN (hypertension) IBS (irritable bowel syndrome) Pelvic pain Stomach ulcer Surgical History Surgical History No significant past surgical history Family History Family History Father Cerebrovascular accident Family history of coronary artery disease Heart disease Liver cancer Grandparent Cerebrovascular accident Diabetes mellitus Other Cancer Other Family history of malignant neoplasm of male breast Social History Social History Smoking status: Current some day smoker (marijuana) Tobacco type: cigars Second hand tobacco smoke exposure: No Additional smoking assessment comments: cigars every couple of weeks Alcohol intake: current Alcohol use details: occasional Substance use: current Substance use type: marijuana Other substance usage details: once monthly Additional living arrangements comments: lives with mother and sister Gender identity (if verbalized by the patient): Female Spiritual care concerns: No Exam Narrative: APPEARANCE: No acute distress, nontoxic, resting in bed HEENT: Normocephalic, atraumatic, OMM RESPIRATORY: No respiratory distress, clear to auscultation bilaterally with no rhonchi wheezing or rales CARDIOVASCULAR: RRR s murmur ABDOMINAL: Soft nondistended tender palpation in right lower quadrant left lower quadrant no rebound or guarding MUSCULOSKELETAl: Moves all extremities. No clubbing, cyanosis or edema. NEURO: Awake and alert. Following commands, speech normal, no focal deficits SKIN:: Warm, dry. Normal Color PSYCHIATRIC: Normal affect/mood Course Course Emergency Course: Reviewed old records patient has been seen for same performed past Patient states that they are feeling much better at this time. States abdominal pain has improved. Repeat abdominal exam shows the patient's abdomen to be soft with no surgical M present. Discussed with patient results of workup and diagnosis. Discussed need for follow-up with primary care physician, reasons to return to the emergency dep
[2020-11-12 11:47] LABS: Add Urine Microscopic? YES; Appearance Urine Clear (Clear); Bacteria Urine Trace /hpf; Bilirubin Urine Negative (Negative); Blood Urine Negative (Negative); Color Urine Yellow (Yellow); Glucose Urine UA Negative (Negative); Ketones Urine Negative (Negative); Leukocyte Esterase Ur Negative LEU/UL (Negative); Mucus Urine Few /lpf; Nitrate Urine Negative (Negative); Protein Urine 1+ mg/dL (Negative); RBC Urine 0-2 /hpf (0-2); Squamous Epithelial Cell Urine Many /hpf (Few); WBC Urine 0-3 /hpf
[2020-11-12 11:51] LABS: Basophils Percent Auto 0.6 % (0.2-1.2); Eosinophils Absolute Auto 0.1 K/mm3 (0-0.3); Eosinophils Percent Auto 1.7 % (0-4.4); Hematocrit 37.2 % (37.0-47.0); Hemoglobin 12.2 g/dL (12.0-15.0); Immature Granulocyte Absolute 0.01 K/mm3 (0.00-0.031); Immature Granulocyte Percent A 0.1 % (0-0.5); Lymphocytes Absolute Auto 1.69 K/mm3 (0.9-3.2); Lymphocytes Percent Auto 23.9 % (18.3-44.2); Mean Corpuscular HGB Conc 32.8 g/dl (32-36); Mean Corpuscular Hemoglobin 30.9 pg (26-34); Mean Corpuscular Volume 94.2 fl (80-100); Mean Platelet Volume 9.5 fl (7.4-10.4); Monocytes Absolute Auto 0.5 K/mm3 (0.1-0.6); Monocytes Percent Auto 6.5 % (2.6-8.5); Neutrophils Absolute Auto 4.8 K/mm3 (1.3-6.7); Neutrophils Percent Auto 67.2 % (45.5-73.1); Platelet Count Result 283 k/mm3 (150-375); Red Blood Count 3.95 M/mm3 (4.2-5.4); White Blood Count 7.1 K/mm3 (4.5-10.0)
[2020-11-12] MEDS: KETOROLAC 30 MG/ML VIAL (*BKC) IV PUSH (11:51)
[2020-11-12] MEDS: SODIUM CHLORIDE 0.9% IV 1,000 ML 999 ML IV CONT (11:51)
[2020-11-12] MEDS: ONDANSETRON INJ 4 MG/2 ML VIAL IV PUSH (11:51)
[2020-11-12 11:58] LABS: Specific Grav Ur 1.031 (1.001-1.035)
[2020-11-12 12:10] LABS: Alanine Aminotransferase 15 U/L (4-35); Albumin Level 4.1 g/dL (3.5-5.1); Alkaline Phosphatase 71 U/L (38-126); Anion Gap 7 mmol/L (8-16); Aspartate Amino Transferase 19 U/L (14-36); Bilirubin,Total 0.4 mg/dL (0.2-1.3); Blood Urea Nitrogen 14 mg/dL (7-17); Calcium 8.9 mg/dL (8.4-10.2); Carbon Dioxide 26 mmol/L (22-30); Chloride 108 mmol/L (98-107); Estimated CRCL calculation 107 ml/min; Estimated Glomerular Filt Rate > 60; Glucose 111 mg/dL (65-110); Lipase 228 U/L (23-300); Potassium 3.9 mmol/L (3.4-5.0); Sodium 141 mmol/L (137-145)
[2020-11-12 12:15] VITALS: BP 156/89; PULSE 98; RESP 18; O2SAT 100
[2020-11-12 13:15] VITALS: BP 152/86; PULSE 98; RESP 18; O2SAT 100
[2020-11-12 13:55] VITALS: BP 138/84; PULSE 92; RESP 18; TEMP 36.9; O2SAT 100
== END 2020-11-12 13:55 | disposition home or self-care (01) ==
PROVIDERS: Emergency Provider Emergency Medicine; PCP Emergency Medicine
DX: R10.32 Left lower quadrant pain (principal); R10.31 Right lower quadrant pain; J45.909 Unspecified asthma, uncomplicated; I10 Essential (primary) hypertension; K58.9 Irritable bowel syndrome, unspecified; F17.290 Nicotine dependence, other tobacco product, uncomplicated
CPT/HCPCS: 36415; 74177; 80053; 81001; 81025; 83690; 85025; 96361; 96374; 96375; 99284; J1885; J2405; J7030; Q9967

== ENCOUNTER 2021-02-06 13:16 | Outpatient (CLI) | payer BC, SELFPAY ==
[2021-02-06 13:50] LABS: Alanine Aminotransferase 17 U/L (4-35); Albumin Level 4.2 g/dL (3.5-5.1); Alkaline Phosphatase 72 U/L (38-126); Amylase 77 U/L (30-110); Aspartate Amino Transferase 24 U/L (14-36); Bilirubin,Total 0.5 mg/dL (0.2-1.3); Lipase 190 U/L (23-300)
== END 2021-02-06 13:17 | disposition home or self-care (01) ==
LOC: ANHSURGERY 13:19
PROVIDERS: PCP Emergency Medicine; Visit Provider Surgery
DX: Z01.812 Encounter for preprocedural laboratory examination (principal); K81.1 Chronic cholecystitis
CPT/HCPCS: 36415; 80076; 82150; 83690; 86850; 86900; 86901

== ENCOUNTER 2021-02-22 00:26 | Day surgery (SDC) | payer BC, SELFPAY ==
[2021-02-01 15:46] VITALS: BMI 41.1
--- NOTE | 2021-02-01 15:57 | PC.NURSE ---
Report to the Outpatient Waiting Room, entrance under the green pavilion located off [facility], at time 11:30 on date 02/09/21. OR Time: 1:30. - You and your visitor will be asked a series of questions to screen for COVID 19 for your protection. - A mask is required within the hospital. - Only one visitor is allowed at this time. Patient visitors will be guided where to wait when not with patient. Preoperative COVID Testing Requirements: No COVID Test needed if: (proof is required; if not received patient will have Rapid Test prior to entry) - Patient has received COVID Vaccine at least 14 days prior to procedure date or - Patient has positive COVID test result within last 90 days of surgery date. COVID Test needed if above criteria is not met If not COVID vaccinated a COVID test must be conducted within 72 hours of surgery and patient is asked to isolate self from time of testing until procedure. You will go to the [employer] [facility] for your COVID testing. The [employer] [facility] site is located at the corner of [address] [facility]. You will only be called if COVID results are positive and your surgeon may reschedule your elective surgery date. Patients may have clear liquids (water, carbonated beverages, clear teas, apple juice) until 3 hours prior to surgery with a maximum of 20 ounces. - No food from midnight until time of surgery - Infants may have breast milk until 4 hours before surgery, infant formula 6 hours prior to surgery. - Children will be allowed to drink immediately following surgery. If applicable, please bring a bottle or sippy cup to assist with drinking. Juice, water, soda, and popsicles are readily available. For infants on formula, please bring formula the day of surgery. Pacifiers are allowed. Take the following medications with a SIP of water the morning of surgery: AMLODIPINE, INHALER (IF NEEDED) Medications to discontinue per physician: VITAMINS/SUPPLEMENTS Date to take last dose: 02/05/21 Please no make-up, nail syriac, hairspray, perfume, deodorant, or body powder the day of surgery. No jewelry (including any body piercings) or valuables the day of surgery, leave them at home. Please take a shower or bath the night before, or the morning of, surgery with an antibacterial soap. Wear comfortable, loose fitting clothing. Children are encouraged to wear pajamas. HIBICLENS SHOWER - Jewelry must be removed prior to entering the operating room. Rings and piercings that are not removed may be cut off. - The hospital will not accept responsibility for valuables. - Please leave all valuables, including medications, at home the day of surgery. If you are going home after surgery, a licensed front end loader driver must drive you home. - NO public transportation without another adult. - We recommend that an adult stay with you for 24 hours following discharge. - We also recommend that you do not drive, make important decision, drink alcoholic beverages, or take any drugs that were not prescribed by your health care provider for at least 24 hours after your discharge time. For Pediatric surgeries, we recommend two adults accompany the child home (only one inside the building at this time). Follow any additional instructions given to you from your surgeon. Telephone instructions given to NEYMAR CROOK and asked if any additional questions and then verbalized understanding. Patient advised to call surgeon office or pre surgery nurse liaison [phone] if any additional questions.
--- NOTE | 2021-02-14 14:00 | PC.NURSE ---
Report to the Outpatient Waiting Room, entrance under the green pavilion located off [facility], at time ____1030___ on date __02/22/2021 . OR Time: __0 . - You and your visitor will be asked a series of questions to screen for COVID 19 for your protection. - A mask is required within the hospital. - Only one visitor is allowed at this time. Patient visitors will be guided where to wait when not with patient. Preoperative COVID Testing Requirements: No COVID Test needed if: (proof is required; if not received patient will have Rapid Test prior to entry) - Patient has received COVID Vaccine at least 14 days prior to procedure date or - Patient has positive COVID test result within last 90 days of surgery date. COVID Test needed if above criteria is not met If not COVID vaccinated a COVID test must be conducted within 72 hours of surgery and patient is asked to isolate self from time of testing until procedure. You will go to the [facility] for your COVID testing. [facility] is located at the corner of [address] [facility]. You will only be called if COVID results are positive and your surgeon may reschedule your elective surgery date. Patients may have clear liquids (water, carbonated beverages, clear teas, apple juice) until 3 hours prior to surgery with a maximum of 20 ounces. - No food from midnight until time of surgery - Infants may have breast milk until 4 hours before surgery, infant formula 6 hours prior to surgery. - Children will be allowed to drink immediately following surgery. If applicable, please bring a bottle or sippy cup to assist with drinking. Juice, water, soda, and popsicles are readily available. For infants on formula, please bring formula the day of surgery. Pacifiers are allowed. Take the following medications with a SIP of water the morning of surgery: ___Amlodipine Medications to discontinue per physician __Vitamin D Date to take last dose 02/16/2021 Please no make-up, nail persian, hairspray, perfume, deodorant, or body powder the day of surgery. No jewelry (including any body piercings) or valuables the day of surgery, leave them at home. Please take a shower or bath the night before, or the morning of, surgery with an antibacterial soap. Wear comfortable, loose fitting clothing. Children are encouraged to wear pajamas. - Jewelry must be removed prior to entering the operating room. Rings and piercings that are not removed may be cut off. - The hospital will not accept responsibility for valuables. - Please leave all valuables, including medications, at home the day of surgery. If you are going home after surgery, a licensed commercial driver must drive you home. - NO public transportation without another adult. - We recommend that an adult stay with you for 24 hours following discharge. - We also recommend that you do not drive, make important decision, drink alcoholic beverages, or take any drugs that were not prescribed by your health care provider for at least 24 hours after your discharge time. For Pediatric surgeries, we recommend two adults accompany the child home (only one inside the building at this time). Follow any additional instructions given to you from your surgeon. Telephone instructions given to ____patient and asked if any additional questions and then verbalized understanding. Patient advised to call surgeon office or pre surgery nurse liaison [phone] if any additional questions.
--- NOTE | 2021-02-14 14:13 | PC.NURSE ---
Pt states no change in health history/medications since interview of 02/01/2021. New instructions given.
[2021-02-22] VITALS (10 sets, daily range): BP systolic 123–163; BP diastolic 66–97; PULSE 68–115; RESP 15–18; TEMP 36.4–37; O2SAT 95–100
--- NOTE | 2021-02-22 09:58 | WPDHPUPDATE1 ---
History and Physical Update Update Date/Time: 02/22/21 09:58 History and Physical has been reviewed, including an updated exam of the patient. There are NO changes in the patient's condition. Risks, benefits, and alternatives have been discussed and questions answered. Patient agrees to proceed with procedure.
--- NOTE | 2021-02-22 10:42 | WPDANESEPPF ---
Anes - Initial Pre Proc Eval Procedure: Operation Date: 02/22/21 12:30 Proposed Procedures p Laparoscopic Cholecystectomy - Don Weber MD Date/Time: 02/22/21 10:42 Surgeon: Don Weber MD Pre Op Diagnosis: acalculous chronic cholecystitis Patient Data Age: 30 Gender: F Height: 1.63 m Weight: 108.86 kg Allergies Allergy/AdvReac Type Severity Reaction Status Date / Time No Known Allergies Allergy Mild Verified 02/01/21 15:44 Home Medications Medication Instructions Recorded Confirmed Type etonogestrel 68 mg subdermal 1 implant SUBDERMAL ONCE 12/29/19 02/01/21 History implant cholecalciferol (vitamin D3) 1,250 1,250 mcg PO WEEKLY 04/15/20 02/01/21 History mcg (50,000 unit) capsule albuterol sulfate [ProAir HFA] 2 puff INHALATION QID PRN 08/10/20 02/01/21 History amitriptyline 25 mg tablet 25 mg PO QHS #30 tablet 11/16/20 02/01/21 Rx amlodipine 10 mg tablet 20 mg PO DAILY tablet 01/03/21 02/01/21 History omeprazole 40 mg capsule,delayed 40 mg PO BID 90 Days #180 cap 01/03/21 02/01/21 Rx release Patient hx anesthesia problems: none Family hx anesthesia problems: none Results Review: All pre-operative results and documents have been reviewed as part of the pre-operative evaluation. [facility] Past Medical History Medical History Anxiety Asthma Depression Elevated lipase GERD (gastroesophageal reflux disease) HTN (hypertension) IBS (irritable bowel syndrome) Pelvic pain Stomach ulcer Surgical History Surgical History No significant past surgical history Family History Family History Father Cerebrovascular accident Family history of coronary artery disease Heart disease Liver cancer Grandparent Cerebrovascular accident Diabetes mellitus Other Cancer Other Family history of malignant neoplasm of male breast Social History Social History Smoking status: Former smoker Tobacco type: cigars Second hand tobacco smoke exposure: No Smoking end date: 01/23/21 Additional smoking assessment comments: cigars every couple of weeks Alcohol intake: current Alcohol use details: A COUPLE/YEAR Substance use: current Substance use type: marijuana Other substance usage details: EVERY COUPLE WEEKS Living arrangements: with family Additional living arrangements comments: lives with mother and sister Gender identity (if verbalized by the patient): Female Spiritual care concerns: No Anes - Eval Final PreProcedure Day of Procedure 02/22/21 10:42 Patient weight: morbidly obese Heart: regular rate and rhythm Lungs: clear to auscultation and normal air movement Airway: Mallampati scale class II Neurological: alert and oriented Last oral intake: >/= 8 hours ASA classification: III Emergent: no Anesthetic plan: proceed Anesthesia type and monitoring: general ETT and standard monitoring Results Review: All pre-operative results and documents have been reviewed as part of the pre-operative evaluation. Informed Consent: The patient's anesthetic plan and its attendant risks and benefits were discussed with the patient/family/POA. Questions were solicited and answers provided to the satisfaction of the patient/family/POA.
[2021-02-22] MEDS: ACETAMINOPHEN 500 MG TABLET 1000 MG PO (10:55)
[2021-02-22] MEDS: LACTATED RINGERS 1,000 ML 30 ML IV CONT ×2 (11:27→13:18)
[2021-02-22] MEDS: KETOROLAC 15 MG/ML VIAL (*BKC) IV PUSH (11:29)
[2021-02-22] MEDS: ceFAZolin 2 GM/D5W 50 ML 2 GM/50 ML BAG IVPB (12:15)
[2021-02-22] MEDS: BUPIVACAINE/EPINEPHRINE 0.5% 10 ML VIAL 30 ML INFILTRATE (12:28)
--- NOTE | 2021-02-22 13:33 | W.PM.PROC2 ---
Procedure Note - Detailed Date of Procedure 02/22/21 Pre-op Diagnosis acalculous chronic cholecystitis Post-op Diagnosis same Procedure Performed Laparoscopic cholecystectomy Surgeon Don Weber MD [employer] Supervisor Minal WRIGHT Anesthesia general and local (0.5% Marcaine with epinephrine) Indications Patient has had postprandial right upper quadrant abdominal pain associated with nausea for quite a long time. This is worth after fatty meals. She had a negative gallbladder ultrasound but HIDA scan back in March showed a very low gallbladder ejection fraction consistent with chronic cholecystitis. She is taken to surgery now for laparoscopic cholecystectomy. Findings Minimal inflammatory changes were noted. No stones were noted. No biliary ductal dilatation or liver abnormalities were appreciated. Description of Procedure Patient was taken to surgery and induced into general anesthesia. The abdomen is prepped and draped. Trocars were placed in the usual fashion using 0.5% Marcaine with epinephrine and applied Medical optical trocars. A 5 mm camera was used. The gallbladder was decompressed with a laparoscopic aspirator. The cholecystotomy was closed with a Vicryl endoloop. The gallbladder was then retracted anterosuperiorly. Dissection was carried out in the cholecystohepatic triangle. The cystic duct and cystic artery were dissected out very clearly. The gallbladder was dissected off the liver and critical view was achieved. We then securely clipped and divided the cystic duct and cystic artery. The gallbladder was freed from its remaining attachments to the liver. Very little bleeding occurred. We cauterized the gallbladder fossa and made it hemostatic. The gallbladder was placed in an Endo-Catch bag and retrieved through the 10 11 epigastric trocar site. We replaced the epigastric trocar and reviewed the right upper quadrant. All looked good with no evidence of bleeding or bile leakage. We then evacuated CO2 and removed the trocar sleeves. Skin wounds were closed with subcuticular 4-0 Monocryl skin suture. The wounds were dressed with Exofin surgical adhesive. Patient was awakened and taken to recovery in good condition. Sponge and needle counts were correct x2. Estimated Blood Loss -5 Drains No Packing No Pathology yes (Gallbladder) Complications No immediate complications Condition stable Disposition PACU
[2021-02-22] MEDS: oxyCODONE HCL (*CRX) 5 MG TAB IR PO (14:37)
--- NOTE | 2021-02-22 15:21 | SUR.PHASEII ---
PT MEETS DISCHARGE CRITERIA AND IS WAITING FOR HER RIDE TO ARRIVE.
== END 2021-02-22 15:32 | disposition home or self-care (01) ==
PROVIDERS: PCP Emergency Medicine; Visit Provider Surgery
PROC: 0FT44ZZ Resection of Gallbladder, Percutaneous Endoscopic Approach (ICD-10-PCS; CPT 47562; principal; 2021-02-22 12:30)
DX: K81.1 Chronic cholecystitis (principal); I10 Essential (primary) hypertension; F41.8 Other specified anxiety disorders; K58.9 Irritable bowel syndrome, unspecified; K21.9 Gastro-esophageal reflux disease without esophagitis; J45.909 Unspecified asthma, uncomplicated; Z79.51 Long term (current) use of inhaled steroids; F12.90 Cannabis use, unspecified, uncomplicated; F17.290 Nicotine dependence, other tobacco product, uncomplicated; E66.01 Morbid (severe) obesity due to excess calories; Z68.41 Body mass index [BMI] 40.0-44.9, adult
CPT/HCPCS: 47562; 36415; 86850; 86900; 86901; 88304; A9270; C1713; J0330; J0690; J1100; J1170; J1885; J2250; J2405; J2704; J2710; J3010; J7120

== ENCOUNTER 2022-10-09 08:13 | Emergency (ER) | payer SELFPAY ==
[2022-10-09 08:16] VITALS: BP 173/97; PULSE 90; RESP 18; TEMP 36.4; O2SAT 100
[2022-10-09 08:28] VITALS: O2SAT 100
[2022-10-09 08:46] VITALS: O2SAT 100
--- NOTE | 2022-10-09 08:58 | ED.HA ---
HPI - Headache General Chief Complaint: Headache Stated Complaint: headache Time Seen by Provider: 10/09/22 08:14 History of Present Illness HPI Narrative: 32-year-old female presented the ED for evaluation of headache. Patient reports she does have history of sinus infection and migraine headaches. Patient states typically when she gets a headache it does resolve with ibuprofen. Patient states this headache started yesterday about 2 PM and did not respond to her decongestants and anti-inflammatories. Patient does report associated sinus pressure and light sensitivity. Patient denies any falls injuries neck pain or fever. Patient states she is not . Related Data Home Medications Medication Instructions Recorded Confirmed cholecalciferol (vitamin D3) 1,250 1,250 mcg PO WEEKLY 04/15/20 03/13/21 mcg (50,000 unit) capsule albuterol sulfate 90 mcg/actuation 2 puff inhalation QID PRN 08/10/20 03/13/21 aerosol inhaler (ProAir HFA) Shortness Of Breath amlodipine 10 mg tablet 20 mg PO DAILY 01/03/21 03/13/21 etonogestrel 68 mg subdermal 1 implant subdermal ONCE 10/24/21 implant (Nexplanon) Allergies Allergy/AdvReac Type Severity Reaction Status Date / Time No Known Allergies Allergy Mild Verified 10/24/21 13:21 Review of Systems Review of Systems: All systems reviewed & are unremarkable except as noted in HPI and below PMFSH Past Medical History Medical History (Updated 10/09/22 @ 09:56 by Jesús Thompson MD) Anxiety Asthma Cholecystitis Depression Elevated lipase GERD (gastroesophageal reflux disease) Hot flashes HTN (hypertension) IBS (irritable bowel syndrome) Pelvic pain Stomach ulcer Vertigo Surgical History Surgical History History of cholecystectomy Family History Family History Father Cerebrovascular accident Family history of coronary artery disease Heart disease Liver cancer Grandparent Cerebrovascular accident Diabetes mellitus Other Cancer Other Family history of malignant neoplasm of male breast Social History Social History Smoking status: Former smoker Tobacco type: cigars Second hand tobacco smoke exposure: No Smoking end date: 01/23/21 Additional smoking assessment comments: cigars every couple of weeks Alcohol intake: current Alcohol use details: A COUPLE/YEAR Substance use: current Substance use type: marijuana Other substance usage details: EVERY COUPLE WEEKS Living arrangements: with family Additional living arrangements comments: lives with mother and sister Gender identity (if verbalized by the patient): Female Spiritual care concerns: No Exam Narrative: APPEARANCE: Well appearing, no pain, no distress, well-nourished. HEAD: normocephalic, atraumatic. EYES: PERRLA/EOMI, conjunctivae clear. NOSE: Normal no drainage NECK: Supple. No adenopathy, no masses. RESPIRATORY: Airway patent, respirations nonlabored. Clear to auscultation bilaterally, no rales, rhonchi, wheezing. CARDIOVASCULAR: Regular rate and rhythm without murmurs rubs or gallops. ABDOMINAL: Soft, nontender, nondistended, normal bowel sounds MUSCULOSKELETAL: Moves all extremities. Strength/ROM intact, No edema, No calf tenderness. NEURO: Alert. Cranial nerves II through XII intact. Grossly intact SKIN: Warm, dry. Normal Color Course Course Emergency Course: 32-year-old female presented ED for evaluation of headache. Patient was treated with IV saline, IV Toradol, IV Benadryl and IV Compazine. Patient did feel improved with treatment. Patient reports as a follow-up with her primary care physician on Saturday. All questions concerns were addressed. Patient was well-appearing at time of discharge. Vital Signs Vital signs: Vital Signs Temperature 97.6 F 10/09/22 08:16 Pul
[2022-10-09] MEDS: diphenhydrAMINE HCl INJ 50 MG/ML VIAL 25 MG IV PUSH (08:59)
[2022-10-09] MEDS: SODIUM CHLORIDE 0.9% IV 1,000 ML 999 ML IV CONT (08:59)
[2022-10-09] MEDS: PROCHLORPERAZINE EDISYLATE 10 MG/2 ML VIAL IV PUSH (08:59)
[2022-10-09] MEDS: KETOROLAC 15 MG/ML VIAL (*BKC) IV PUSH (09:05)
[2022-10-09 09:08] VITALS: O2SAT 100
[2022-10-09 09:12] VITALS: BP 155/89; PULSE 78; RESP 18
[2022-10-09 09:58] VITALS: BP 139/76; PULSE 80; RESP 18; O2SAT 100
--- NOTE | 2022-10-16 12:20 | PC.NURSE ---
LATE ENTRY This note is being entered to document information to the patient's record. The following information was omitted on 10/09/22, by Stormy Avina RN. Shanta Saline infused total amount 1,000ml with zero left in container with stop time 2487
== END 2022-10-09 10:23 | disposition home or self-care (01) ==
PROVIDERS: Emergency Provider Emergency Medicine; PCP Family Medicine
DX: G43.909 Migraine, unspecified, not intractable, without status migrainosus (principal); I10 Essential (primary) hypertension; J45.909 Unspecified asthma, uncomplicated; K21.9 Gastro-esophageal reflux disease without esophagitis; K58.9 Irritable bowel syndrome, unspecified; Z87.891 Personal history of nicotine dependence; Z90.49 Acquired absence of other specified parts of digestive tract
CPT/HCPCS: 96361; 96374; 96375; 99284; J0780; J1200; J1885; J7030

== ENCOUNTER 2022-10-15 07:53 | Emergency (ER) | payer OTHER, MEDICAID, SELFPAY ==
--- NOTE | ~2022-10-15 | CT_ITS ---
EXAMINATION: CT abdomen pelvis w con DATE: 10/15/2022 11:00 INDICATION: Left upper quadrant pain TECHNIQUE: Computed tomography (CT) of the abdomen and pelvis was performed without intravenous contr ast. The dose-length product was 1234.14 mGy-cm. Automated exposure control and iterative reconstruct ion technique were employed. COMPARISON: CT dated 11/12/2020. FINDINGS: Lung bases are unremarkable. Heart size normal. No significant pleural or pericardial effus ion. No significant vascular abnormality. There are cholecystectomy clips. Status post cholecystectom y. There is a small subcentimeter hypodensity of the right hepatic lobe, most likely benign. The sple en, pancreas, adrenal glands and kidneys are unremarkable. There are cholecystectomy clips. No lympha denopathy. No free air or free fluid. Nonobstructive bowel pattern. No focal bowel abnormalities. Nor mal appendix. No acute osseous abnormality. IMPRESSION: 1. No acute abdominal abnormality. Reviewed, dictated and finalized at location B.
[2022-10-15 07:59] VITALS: BP 142/84; PULSE 91; RESP 18; TEMP 36.7; O2SAT 99
--- NOTE | 2022-10-15 08:33 | ED.GIBLEED ---
HPI - GI Bleed General Chief complaint: GI Bleed Stated complaint: Bloody stool Time Seen by Provider: 10/15/22 08:17 History of Present Illness HPI Narrative: Patient is a 32-year-old female with history of diverticulitis who presents ER with rectal bleeding and abdominal pain. Patient was having symptoms 5 days ago and was started on Cipro/Flagyl by the urgent care. She had had a bloody stool that day where there was a moderate quantity of liquid blood that filled the bowl along with stool. She had similar symptoms today. She continues to have some pain in her left upper quadrant without radiation. No fevers or chills or sweats. No chest pain or chest pressure. She has follow-up with a general surgeon on 10/31/2022. Patient's not on any blood thinners. She has had no dizziness or loss of consciousness. Related Data Home Medications Medication Instructions Recorded Confirmed cholecalciferol (vitamin D3) 1,250 1,250 mcg PO WEEKLY 04/15/20 03/13/21 mcg (50,000 unit) capsule albuterol sulfate 90 mcg/actuation 2 puff inhalation QID PRN 08/10/20 03/13/21 aerosol inhaler (ProAir HFA) Shortness Of Breath amlodipine 10 mg tablet 20 mg PO DAILY 01/03/21 03/13/21 etonogestrel 68 mg subdermal 1 implant subdermal ONCE 10/24/21 implant (Nexplanon) Allergies Allergy/AdvReac Type Severity Reaction Status Date / Time No Known Allergies Allergy Mild Verified 10/15/22 09:00 Review of Systems Review of Systems: All systems reviewed & are unremarkable except as noted in HPI and below Constitutional: Constitutional: Denies chills, Denies fatigue and Denies fever(s) ENT: Denies nasal congestion and Denies sore throat Cardiovascular: Cardiovascular: Denies chest pain, Denies rapid heart rate and Denies radiating jaw, neck or arm pain Respiratory: Respiratory: Denies cough and Denies dyspnea Gastrointestinal: Gastrointestinal: Reports abdominal pain, Denies nausea and Denies vomiting Comments: Blood in stool Neurologic: Denies syncope, Denies focal weakness and Denies numbness PMF Past Medical History Medical History (Updated 10/15/22 @ 12:39 by Dhaval Smith MD) Anxiety Asthma Cholecystitis Depression Elevated lipase GERD (gastroesophageal reflux disease) Hot flashes HTN (hypertension) IBS (irritable bowel syndrome) Pelvic pain Stomach ulcer Vertigo Surgical History Surgical History History of cholecystectomy Family History Family History Father Cerebrovascular accident Family history of coronary artery disease Heart disease Liver cancer Grandparent Cerebrovascular accident Diabetes mellitus Other Cancer Other Family history of malignant neoplasm of male breast Social History Social History Smoking status: Former smoker Tobacco type: cigars Second hand tobacco smoke exposure: No Smoking end date: 01/23/21 Additional smoking assessment comments: cigars every couple of weeks Alcohol intake: current Alcohol use details: A COUPLE/YEAR Substance use: current Substance use type: marijuana Other substance usage details: EVERY COUPLE WEEKS Living arrangements: with family Additional living arrangements comments: lives with mother and sister Gender identity (if verbalized by the patient): Female Spiritual care concerns: No Exam Narrative: GENERAL: Well-appearing, obese, and in no acute distress. HEAD: Normocephalic, atraumatic. ENT: Mucous membranes moist. CHEST: Clear to auscultation. No respiratory distress. HEART: Regular rate and rhythm. Normal peripheral pulses. ABDOMEN: Soft, nontender, nondistended. EXTREMITIES: Normal range of motion. No edema. SKIN: Warm, dry, no rash. NEURO: Alert and oriented x3. PSYCH: Normal mood and affect. Course Course Emergency Course
[2022-10-15 08:58] VITALS: BP 148/106; PULSE 92; RESP 20; O2SAT 100
[2022-10-15 09:38] LABS: Basophils Percent Auto 0.3 % (0.2-1.2); Eosinophils Absolute Auto 0.1 K/mm3 (0-0.3); Eosinophils Percent Auto 0.8 % (0-4.4); Hematocrit 39.4 % (37.0-47.0); Hemoglobin 12.9 g/dL (12.0-15.0); Immature Granulocyte Absolute 0.02 K/mm3 (0.00-0.031); Immature Granulocyte Percent A 0.3 % (0-0.5); Lymphocytes Absolute Auto 1.68 K/mm3 (0.9-3.2); Lymphocytes Percent Auto 26.5 % (18.3-44.2); Mean Corpuscular HGB Conc 32.7 g/dl (32-36); Mean Corpuscular Hemoglobin 30.9 pg (26-34); Mean Corpuscular Volume 94.5 fl (80-100); Mean Platelet Volume 9.4 fl (7.4-10.4); Monocytes Absolute Auto 0.6 K/mm3 (0.1-0.6); Monocytes Percent Auto 9.5 % (2.6-8.5); Neutrophils Percent Auto 62.6 % (45.5-73.1); Platelet Count Result 301 k/mm3 (150-375); Red Blood Count 4.17 M/mm3 (4.2-5.4); Red Cell Distribution Width 15.4 % (11.5-14.5); White Blood Count 6.3 K/mm3 (4.5-10.0)
[2022-10-15 09:48] LABS: INR 0.9; Prothrombin Time 12.7 Seconds (11.1-14.7)
[2022-10-15 09:49] LABS: Partial Thromboplastin Time 29.1 SECONDS (22.3-36.8)
[2022-10-15 09:51] LABS: Alanine Aminotransferase 32 U/L (6-35); Albumin Level 4.2 g/dL (3.5-5.1); Alkaline Phosphatase 73 U/L (38-126); Anion Gap 5 mmol/L (8-16); Aspartate Amino Transferase 29 U/L (14-36); Bilirubin,Total 0.5 mg/dL (0.2-1.3); Blood Urea Nitrogen 12 mg/dL (7-17); Calcium 8.5 mg/dL (8.4-10.2); Carbon Dioxide 23 mmol/L (22-30); Chloride 109 mmol/L (98-107); Estimated CRCL calculation 120 ml/min; Estimated Glomerular Filt Rate > 60; Glucose 107 mg/dL (65-110); Sodium 137 mmol/L (137-145)
[2022-10-15 10:30] VITALS: BP 149/99; PULSE 79; RESP 18; O2SAT 100
[2022-10-15 11:37] VITALS: BP 139/89; PULSE 87; RESP 18; O2SAT 100
[2022-10-15 13:00] VITALS: BP 155/90; PULSE 78; RESP 17; O2SAT 100
== END 2022-10-15 13:01 | disposition home or self-care (01) ==
PROVIDERS: Emergency Provider Emergency Medicine; PCP Family Medicine
DX: K62.5 Hemorrhage of anus and rectum (principal); I10 Essential (primary) hypertension; J45.909 Unspecified asthma, uncomplicated; K21.9 Gastro-esophageal reflux disease without esophagitis; K58.9 Irritable bowel syndrome, unspecified; Z87.891 Personal history of nicotine dependence
CPT/HCPCS: 36415; 74177; 80053; 81025; 85025; 85610; 85730; 99284; Q9967

== ENCOUNTER 2022-11-02 07:52 | Outpatient (CLI) | payer OTHER, SELFPAY ==
[2022-11-06 14:09] LABS: Immunoglobulin A 295 mg/dL (47-310); TTG IGA AB <1.0 U/mL (<15.0)
[2022-11-07 14:56] LABS: ANCA Screen Negative (Negative); Myeloperoxidase Ab <1.0 AI (<1.0); Proteinase-3 Ab <1.0 AI (<1.0); S cerevisiae Ab (IgA) 11.5 U (<=20.0); S cerevisiae Ab (IgG) 17.3 U (<=20.0)
[2022-11-08 18:53] LABS: Calprotectin, Stool 9 mcg/g
== END 2022-11-02 07:53 | disposition home or self-care (01) ==
PROVIDERS: PCP Family Medicine; Visit Provider Internal Medicine Gastroenterology
DX: R10.9 Unspecified abdominal pain (principal); R11.2 Nausea with vomiting, unspecified; K62.5 Hemorrhage of anus and rectum
CPT/HCPCS: 36415; 82784; 83993; 86036; 86364; 86671

== ENCOUNTER 2022-11-13 19:59 | Emergency (ER) | payer OTHER, SELFPAY ==
[2022-11-13 20:50] VITALS: BP 136/85; PULSE 84; RESP 20; TEMP 36.8; O2SAT 100
--- NOTE | 2022-11-13 20:59 | ED.ABDPAIN ---
HPI - Abdominal Pain General Chief Complaint: Abdominal Pain Stated Complaint: abd pain Time Seen by Provider: 11/13/22 20:59 History of Present Illness HPI narrative: Patient presents the emergency department generalized abdominal discomfort she has had this pain intermittently for years. She has been vomiting all day. She cannot go to work because of the emesis. She is requesting a work note. Denies any acute changes. Denies fevers chills. Has Zofran at home for nausea that works intermittently. Related Data Home Medications Medication Instructions Recorded Confirmed cholecalciferol (vitamin D3) 1,250 1,250 mcg PO WEEKLY 04/15/20 10/23/22 mcg (50,000 unit) capsule albuterol sulfate 90 mcg/actuation 2 puff inhalation QID PRN 08/10/20 10/23/22 aerosol inhaler (ProAir HFA) Shortness Of Breath amlodipine 10 mg tablet 20 mg PO DAILY 01/03/21 10/23/22 etonogestrel 68 mg subdermal 1 implant subdermal ONCE 10/24/21 10/23/22 implant (Nexplanon) melatonin 5 mg capsule 10 mg PO .PRN 10/25/22 omeprazole 40 mg capsule,delayed 40 mg PO DAILY 10/25/22 release Allergies Allergy/AdvReac Type Severity Reaction Status Date / Time No Known Allergies Allergy Mild Verified 11/13/22 20:56 Review of Systems Review of Systems: Review of systems negative except what is documented in the HPI [facility] Past Medical History Medical History Anxiety Asthma Cholecystitis Depression Elevated lipase GERD (gastroesophageal reflux disease) Hot flashes HTN (hypertension) IBS (irritable bowel syndrome) Pelvic pain Stomach ulcer Vertigo Surgical History Surgical History History of cholecystectomy Family History Family History Father Cerebrovascular accident Family history of coronary artery disease Heart disease Liver cancer Grandparent Cerebrovascular accident Diabetes mellitus Other Cancer Other Family history of malignant neoplasm of male breast Social History Social History (Updated 10/25/22 @ 10:12 by Mindi Vital MA) Smoking status: Former smoker Tobacco type: cigars Second hand tobacco smoke exposure: No Smoking end date: 01/23/21 Additional smoking assessment comments: cigars every couple of weeks Alcohol intake: current Alcohol use details: A COUPLE/YEAR Substance use: current Substance use type: marijuana Other substance usage details: EVERY COUPLE WEEKS Lack of Transportation: YES Lack of Food: Never True Current Housing: I Have Housing Concerned About Future Housing: No Difficulty Paying Gas/Electric Bills: YES Difficulty Paying for Meds: YES Currently Unemployed: No Education: Trade/Vocational Certificate Difficulty w/ Childcare or Family Care: No Living arrangements: with family Additional living arrangements comments: lives with mother and sister Occupation/Education: occupation Gender identity (if verbalized by the patient): Female Spiritual care concerns: No Exam Narrative: GENERAL: Well-appearing, well-nourished, and in no acute distress. HEAD: Normocephalic, atraumatic. EYES: PERRLA and EOMI. ENT: Nares clear, no rhinorrhea or epistaxis. Mucous membranes moist. NECK: Supple. CHEST: Clear to auscultation. No respiratory distress. HEART: Regular rate and rhythm. ABDOMEN: Soft, nontender, nondistended. EXTREMITIES: Normal range of motion. No edema. SKIN: Warm, dry, no rash. NEURO: No focal deficits. Alert and oriented x3. PSYCH: Normal mood and affect. Course Course Emergency Course: Exam is completely benign abdomen is soft and nontender. Vital signs are stable. Patient is not requesting any work-up just a work note. Will DC Vital Signs Vital signs: Vital Signs Temperature 36.8 C 11/13/22 20:50 Pulse Rate 84 11/13/22 20:50
== END 2022-11-13 21:05 | disposition home or self-care (01) ==
PROVIDERS: Emergency Provider Emergency Medicine; PCP Family Medicine
DX: R10.84 Generalized abdominal pain (principal); I10 Essential (primary) hypertension; Z87.891 Personal history of nicotine dependence
CPT/HCPCS: 99283

== ENCOUNTER 2022-11-21 15:42 | Emergency (ER) | payer OTHER, SELFPAY ==
[2022-11-21 15:54] VITALS: BP 150/92; PULSE 108; RESP 16; TEMP 36.9; O2SAT 100
[2022-11-21 15:56] VITALS: BP 150/92; PULSE 108; RESP 16; TEMP 36.9; O2SAT 100
--- NOTE | 2022-11-21 16:34 | ED.NAVMDI ---
HPI - Nausea/Vomiting/Diarrhea General Chief complaint: Nausea/Vomiting/Diarrhea Stated complaint: NAUSEA/VOMITING/WANTS WORK NOTE Time Seen by Provider: 11/21/22 16:30 Source: patient, RN notes reviewed and old records reviewed Mode of arrival: ambulatory Limitations: no limitations History of Present Illness HPI Narrative: Patient presents today reporting 1 episode of vomiting in 3-4 episodes of diarrhea today. She had to call into work and is requesting a work note to excuse her. Patient has been taking Reglan and Zofran with mild relief. She has been able to keep down water and small amounts of food after her vomiting episode. She does see a [employer] erp developer and is scheduled for a colonoscopy on 11/30/2022 for these ongoing symptoms. Related Data Home Medications Medication Instructions Recorded Confirmed cholecalciferol (vitamin D3) 1,250 1,250 mcg PO WEEKLY 04/15/20 11/21/22 mcg (50,000 unit) capsule albuterol sulfate 90 mcg/actuation 2 puff inhalation QID PRN 08/10/20 11/21/22 aerosol inhaler (ProAir HFA) Shortness Of Breath amlodipine 10 mg tablet 10 mg PO DAILY 01/03/21 11/21/22 etonogestrel 68 mg subdermal 1 implant subdermal ONCE 10/24/21 11/21/22 implant (Nexplanon) melatonin 5 mg capsule 10 mg PO .PRN 10/25/22 11/21/22 omeprazole 40 mg capsule,delayed 40 mg PO DAILY 10/25/22 11/21/22 release aspirin 81 mg tablet,delayed 81 mg PO DAILY 11/21/22 11/21/22 release (Adult Low Dose Aspirin) metoclopramide HCl 10 mg tablet 10 mg PO DIRECTED 11/21/22 11/21/22 Allergies Allergy/AdvReac Type Severity Reaction Status Date / Time No Known Allergies Allergy Mild Verified 11/21/22 15:54 Review of Systems Review of Systems: CONSTITUTIONAL: Denies body aches, fever, chills, or sweats. EYES: Denies visual changes, redness, or discharge. ENT: Denies rhinorrhea, congestion, sore throat, or otalgia. CARDIOVASCULAR: Denies chest pain, palpitations, or edema. RESPIRATORY: Denies cough or dyspnea. GASTROINTESTINAL: Denies abdominal pain. + nausea, vomiting, diarrhea GENITOURINARY: Denies dysuria or hematuria. SKIN: Denies rash, itching, or wounds. MUSCULOSKELETAL: Denies back pain, joint pain, or myalgia. NEUROLOGIC: Denies headache, numbness, tingling, or weakness. PSYCH: Denies depression or anxiety. [facility] Past Medical History Medical History Anxiety Asthma Cholecystitis Depression Elevated lipase GERD (gastroesophageal reflux disease) Hot flashes HTN (hypertension) IBS (irritable bowel syndrome) Pelvic pain Stomach ulcer Vertigo Surgical History Surgical History History of cholecystectomy Family History Family History Father Cerebrovascular accident Family history of coronary artery disease Heart disease Liver cancer Grandparent Cerebrovascular accident Diabetes mellitus Other Cancer Other Family history of malignant neoplasm of male breast Social History Social History Smoking status: Never smoker Tobacco type: cigars Second hand tobacco smoke exposure: No Smoking end date: 01/23/21 Additional smoking assessment comments: cigars every couple of weeks Alcohol intake: current Drinks per week: 1 Alcohol use details: A COUPLE/YEAR Substance use: current Substance use type: marijuana Other substance usage details: once a month Lack of Transportation: YES Lack of Food: Never True Current Housing: I Have Housing Concerned About Future Housing: No Difficulty Paying Gas/Electric Bills: YES Difficulty Paying for Meds: YES Currently Unemployed: No Education: Trade/Vocational Certificate Difficulty w/ Childcare or Family Care: No Living arrangements: with family Additional living arrangements com
== END 2022-11-21 16:40 | disposition home or self-care (01) ==
PROVIDERS: Emergency Provider Nurse Practitioner; PCP Internal Medicine Gastroenterology
DX: R11.2 Nausea with vomiting, unspecified (principal); R19.7 Diarrhea, unspecified; I10 Essential (primary) hypertension; F41.9 Anxiety disorder, unspecified; F32.A Depression, unspecified; Z79.82 Long term (current) use of aspirin
CPT/HCPCS: 99211; G0463

== ENCOUNTER 2023-02-01 00:40 | Day surgery (SDC) | payer MEDICAID, SELFPAY ==
[2022-11-20 14:53] VITALS: BMI 44.2
--- NOTE | 2022-11-30 10:52 | PM.HPGS ---
History of Present Illness History of Present Illness Consent: Risks, benefits, and alternatives have been discussed and questions answered. Patient agrees to proceed with procedure. Chief complaint: melena Narrative: Zaynab Carpio is a 32 year old female who had recently been to any emergency roomwith rectal bleeding abdominal pain.? Five days prior to that she had been to an urgent care center with the same symptoms and had been started on antibiotics.? She had been passing quite a bit of blood on both those locations.? She apparently had been told that she had of diverticulitis.? CT scan however did not show diverticular disease.? I had performed a colonoscopy on her a little over a year ago which did show diverticular disease.? She is still seen blood occasionally with bowel movements.? The consistency however is back to normal. he has also been dizzy with nausea and has had a few episodes of vomiting when the pain is severe. [facility] Past Medical History Medical History Anxiety Asthma Cholecystitis Depression Elevated lipase GERD (gastroesophageal reflux disease) Hot flashes HTN (hypertension) IBS (irritable bowel syndrome) Pelvic pain Stomach ulcer Vertigo Surgical History Surgical History History of cholecystectomy Family History Family History Father Cerebrovascular accident Family history of coronary artery disease Heart disease Liver cancer Grandparent Cerebrovascular accident Diabetes mellitus Other Cancer Other Family history of malignant neoplasm of male breast Social History Social History Smoking status: Never smoker Tobacco type: cigars Second hand tobacco smoke exposure: No Smoking end date: 01/23/21 Additional smoking assessment comments: cigars every couple of weeks Alcohol intake: current Drinks per week: 1 Alcohol use details: A COUPLE/YEAR Substance use: current Substance use type: marijuana Other substance usage details: once a month Lack of Transportation: YES Lack of Food: Never True Current Housing: I Have Housing Concerned About Future Housing: No Difficulty Paying Gas/Electric Bills: YES Difficulty Paying for Meds: YES Currently Unemployed: No Education: Trade/Vocational Certificate Difficulty w/ Childcare or Family Care: No Living arrangements: with family Additional living arrangements comments: lives with mother and sister Occupation/Education: occupation Gender identity (if verbalized by the patient): Female Spiritual care concerns: No Meds Home Medications and Allergies Home Medications Medication Instructions Recorded Confirmed Type cholecalciferol (vitamin D3) 1,250 1,250 mcg PO WEEKLY 04/15/20 11/21/22 History mcg (50,000 unit) capsule albuterol sulfate 90 mcg/actuation 2 puff inhalation QID PRN 08/10/20 11/21/22 History aerosol inhaler (ProAir HFA) Shortness Of Breath amlodipine 10 mg tablet 10 mg PO DAILY 01/03/21 11/21/22 History etonogestrel 68 mg subdermal 1 implant subdermal ONCE 10/24/21 11/21/22 History implant (Nexplanon) melatonin 5 mg capsule 10 mg PO .PRN 10/25/22 11/21/22 History omeprazole 40 mg capsule,delayed 40 mg PO DAILY 10/25/22 11/21/22 History release aspirin 81 mg tablet,delayed 81 mg PO DAILY 11/21/22 11/21/22 History release (Adult Low Dose Aspirin) metoclopramide HCl 10 mg tablet 10 mg PO DIRECTED 11/21/22 11/21/22 History Allergies Allergy/AdvReac Type Severity Reaction Status Date / Time No Known Allergies Allergy Mild Verified 11/21/22 15:54 Assessment and Plan Assessment and plan (1) Blood in stool: Code(s): K92.1 - Melena Status: Acute Assessment and Plan: Colonoscopy with possible
[2023-01-21 10:19] VITALS: BMI 44.2
--- NOTE | 2023-01-30 10:09 | SUR.PREOP ---
Patient called regarding upcoming procedure. Reviewed preop instructions, appointment times, and procedure prep.
--- NOTE | 2023-01-31 18:02 | PM.HPGS ---
History of Present Illness History of Present Illness Consent: Risks, benefits, and alternatives have been discussed and questions answered. Patient agrees to proceed with procedure. Chief complaint: melena Narrative: Zaynab Carpio is a 32 year old female Who had rectal bleeding and abdominal pain beginning about 3 months ago. the blood is generally bright red. Had slow down for while but restarted. She admits that it sometimes takes her 30 minutes or so to have a bowel movement during which time she sits on the toilet. There is no family history of inflammatory bowel disease or colon cancer. Review of Systems Review of Systems: All systems reviewed & are unremarkable except as noted in HPI and below PMFSH Past Medical History Medical History Anxiety Asthma Cholecystitis Depression Elevated lipase GERD (gastroesophageal reflux disease) Hot flashes HTN (hypertension) IBS (irritable bowel syndrome) Pelvic pain Stomach ulcer Vertigo Surgical History Surgical History History of cholecystectomy Family History Family History Father Cerebrovascular accident Family history of coronary artery disease Heart disease Liver cancer Grandparent Cerebrovascular accident Diabetes mellitus Other Cancer Other Family history of malignant neoplasm of male breast Social History Social History Smoking status: Never smoker Tobacco type: cigars Second hand tobacco smoke exposure: No Smoking end date: 01/23/21 Additional smoking assessment comments: cigars every couple of weeks Alcohol intake: current Drinks per week: 1 Alcohol use details: A COUPLE/YEAR Substance use: current Substance use type: marijuana Other substance usage details: once a month Lack of Transportation: YES Lack of Food: Never True Current Housing: I Have Housing Concerned About Future Housing: No Difficulty Paying Gas/Electric Bills: YES Difficulty Paying for Meds: YES Currently Unemployed: No Education: Trade/Vocational Certificate Difficulty w/ Childcare or Family Care: No Living arrangements: with family Additional living arrangements comments: lives with mother and sister Occupation/Education: occupation Gender identity (if verbalized by the patient): Female Spiritual care concerns: No Meds Home Medications and Allergies Home Medications Medication Instructions Recorded Confirmed Type cholecalciferol (vitamin D3) 1,250 1,250 mcg PO WEEKLY 04/15/20 02/01/23 History mcg (50,000 unit) capsule albuterol sulfate 90 mcg/actuation 2 puff inhalation QID PRN 08/10/20 02/01/23 History aerosol inhaler (ProAir HFA) Shortness Of Breath amlodipine 10 mg tablet 10 mg PO DAILY 01/03/21 02/01/23 History etonogestrel 68 mg subdermal 1 implant subdermal ONCE 10/24/21 02/01/23 History implant (Nexplanon) melatonin 5 mg capsule 10 mg PO .PRN 10/25/22 02/01/23 History omeprazole 40 mg capsule,delayed 40 mg PO DAILY 10/25/22 02/01/23 History release aspirin 81 mg tablet,delayed 81 mg PO DAILY 11/21/22 02/01/23 History release (Adult Low Dose Aspirin) metoclopramide HCl 10 mg tablet 10 mg PO DIRECTED 11/21/22 02/01/23 History Allergies Allergy/AdvReac Type Severity Reaction Status Date / Time No Known Allergies Allergy Mild Verified 02/01/23 13:30 Exam Resp: Auscultation: clear to auscultation bilaterally Cardio: Rate: regular rate Rhythm: regular rhythm GI: GI Palp: Yes Soft to palpation and No Tenderness to palpation present (GI) Assessment and Plan Assessment and plan (1) Blood in stool: Code(s): K92.1 - Melena Status: Acute Assessment and Plan: Colonoscopy with possible biopsy or polypectomy or cautery or injection of subs
[2023-02-01 13:34] VITALS: BP 157/106; PULSE 90; RESP 16; TEMP 36.4; O2SAT 100
--- NOTE | 2023-02-01 13:36 | WPDANESEPPF ---
Anes - Initial Pre Proc Eval Procedure: Operation Date: 02/01/23 14:00 Proposed Procedures p Colonoscopy - Fady Brown MD Date/Time: 02/01/23 13:36 Surgeon: Fady Brown MD Pre Op Diagnosis: melena Patient Data Age: 32 Gender: F Height: 1.63 m Weight: 117 kg Allergies Allergy/AdvReac Type Severity Reaction Status Date / Time No Known Allergies Allergy Mild Verified 02/01/23 13:30 Home Medications Medication Instructions Recorded Confirmed Type cholecalciferol (vitamin D3) 1,250 1,250 mcg PO WEEKLY 04/15/20 02/01/23 History mcg (50,000 unit) capsule albuterol sulfate 90 mcg/actuation 2 puff inhalation QID PRN 08/10/20 02/01/23 History aerosol inhaler (ProAir HFA) Shortness Of Breath amlodipine 10 mg tablet 10 mg PO DAILY 01/03/21 02/01/23 History etonogestrel 68 mg subdermal 1 implant subdermal ONCE 10/24/21 02/01/23 History implant (Nexplanon) melatonin 5 mg capsule 10 mg PO .PRN 10/25/22 02/01/23 History omeprazole 40 mg capsule,delayed 40 mg PO DAILY 10/25/22 02/01/23 History release aspirin 81 mg tablet,delayed 81 mg PO DAILY 11/21/22 02/01/23 History release (Adult Low Dose Aspirin) metoclopramide HCl 10 mg tablet 10 mg PO DIRECTED 11/21/22 02/01/23 History Patient hx anesthesia problems: none Family hx anesthesia problems: none Results Review: All pre-operative results and documents have been reviewed as part of the pre-operative evaluation. [facility] Past Medical History Medical History Anxiety Asthma Cholecystitis Depression Elevated lipase GERD (gastroesophageal reflux disease) Hot flashes HTN (hypertension) IBS (irritable bowel syndrome) Pelvic pain Stomach ulcer Vertigo Surgical History Surgical History History of cholecystectomy Family History Family History Father Cerebrovascular accident Family history of coronary artery disease Heart disease Liver cancer Grandparent Cerebrovascular accident Diabetes mellitus Other Cancer Other Family history of malignant neoplasm of male breast Social History Social History Smoking status: Never smoker Tobacco type: cigars Second hand tobacco smoke exposure: No Smoking end date: 01/23/21 Additional smoking assessment comments: cigars every couple of weeks Alcohol intake: current Drinks per week: 1 Alcohol use details: A COUPLE/YEAR Substance use: current Substance use type: marijuana Other substance usage details: once a month Lack of Transportation: YES Lack of Food: Never True Current Housing: I Have Housing Concerned About Future Housing: No Difficulty Paying Gas/Electric Bills: YES Difficulty Paying for Meds: YES Currently Unemployed: No Education: Trade/Vocational Certificate Difficulty w/ Childcare or Family Care: No Living arrangements: with family Additional living arrangements comments: lives with mother and sister Occupation/Education: occupation Gender identity (if verbalized by the patient): Female Spiritual care concerns: No Anes - Eval Final PreProcedure Day of Procedure 02/01/23 13:36 Patient weight: morbidly obese Heart: regular rate and rhythm Lungs: clear to auscultation Airway: Mallampati scale class III Neurological: alert and oriented Last oral intake: >/= 8 hours ASA classification: III Emergent: no Anesthetic plan: proceed Anesthesia type and monitoring: general GIVS and standard monitoring Results Review: All pre-operative results and documents have been reviewed as part of the pre-operative evaluation. Informed Consent: The patient's anesthetic plan and its attendant risks and benefits were discussed with the patient/family/POA. Questions were solicited and answers provided to the satisfact
[2023-02-01] MEDS: LACTATED RINGERS 1,000 ML 150 ML IV CONT (14:02)
[2023-02-01 14:31] VITALS: BP 146/95; PULSE 96; RESP 24; O2SAT 96
[2023-02-01 14:41] VITALS: BP 140/88; PULSE 80; RESP 20; O2SAT 96
[2023-02-01 14:51] VITALS: BP 145/92; PULSE 86; RESP 20; O2SAT 99
== END 2023-02-01 15:00 | disposition home or self-care (01) ==
PROVIDERS: Visit Provider Internal Medicine Gastroenterology
PROC: 0DJD8ZZ Inspection of Lower Intestinal Tract, Via Natural or Artificial Opening Endoscopic (ICD-10-PCS; CPT 45378; principal; 2023-02-01 14:00)
DX: K64.8 Other hemorrhoids (principal); I10 Essential (primary) hypertension; K58.9 Irritable bowel syndrome, unspecified; K21.9 Gastro-esophageal reflux disease without esophagitis; J45.909 Unspecified asthma, uncomplicated; F41.9 Anxiety disorder, unspecified; F32.A Depression, unspecified; Z72.0 Tobacco use; Z79.51 Long term (current) use of inhaled steroids; Z79.82 Long term (current) use of aspirin
CPT/HCPCS: 45378; J2704; J7120

== ENCOUNTER 2024-12-14 16:10 | Outpatient (CLI) | payer OTHER, SELFPAY ==
[2024-12-14 17:06] LABS: Hemoglobin A1C 4.8 % (<5.7)
[2024-12-14 17:39] LABS: Syphilis IgG/IgM Antibody Non-Reactive (Nonreactive)
[2024-12-14 17:42] LABS: Hepatitis B Surface Antigen Negative (Negative); Thyroid Stimulating Hormone 0.650 uIU/mL (0.465-4.680)
[2024-12-14 17:48] LABS: HAV RESULT Negative (Negative); Hepatitis B Core IgM Result Negative (Negative)
[2024-12-14 17:52] LABS: HIV 1/2 Ab P24 Ag Result Negative (Negative)
--- OUTSIDE RECORDS SUMMARY | 2024-12-14 18:37 | XMS_ITS | Clinical Summary ---
Author Organization [facility] Address Formerly [facility], [facility] [place] [address] Care Team Providers Care Neck Cutter Name Role Phone Charity Gamez MD Primary Care Provider [phone] Encounters Date Type Department Care Team Description 10/27/2024 3:56 PM CDT - 10/27/2024 11:59 PM CDT Hospital Encounter [facility] [address] [place] [address] Melida Marshall MD Discharge Disposition: Home or Self Care (Routine Discharge) 10/27/2024 Travel from Last 3 Months Social History Tobacco Use Types Packs/Day Years Used Date Smoking Tobacco: Never Assessed Comments Unknown Sex and Gender Information Value Date Recorded Sex Assigned at Female 10/12/2024 3:36 PM CDT Legal Sex Female 3:35 PM CDT Gender Identity Female 10/20/2024 4:54 PM CDT Sexual Orientation Something else 10/20/2024 4: 54 PM CDT Plan of Treatment Health Maintenance Due Date Last Done Comments Cervical Cancer Screening Pap Smear (Age 30 to 64) Every 3 Years 1991 Annual Physical 09/16/1994 Hepatitis C 09/16/2009 DTaP, Tdap and Td Vaccines (4 - Tdap) 09/16/2010 04/07/1993, 04/07/1993, 04/06/1992, Additional history exists HPV Vaccines (1 - 3-dose SCDM series) 09/16/2018 Cervical Cancer Screening Pap with HPV Testing (Age 30 to 64) Every 5 Years 09/16/2021 Cervical Cancer Screening with HPV 09/16/2021 COVID-19 Vaccine ( season) 2024 05/31/2020, 04/19/2020 Influenza Adult (#1) 2024 Hepatitis B Vaccines Completed 06/24/1992, 1991, 1991 Hepatitis A Vaccines Aged Out No long er eligible based on patient's age to complete this topic Meningococcal B Vaccine Aged Out No l onger eligible based on patient's age to complete this topic Meningococcal Vaccine Aged Out No amie lex eligible based on patient's age to complete this topic Pneumococcal Vaccine: Pediatrics (0 to 5 Years) and At-Risk Patients (6 to 49 Years) Aged Out No longer eligible based on patient's age to complete this topic RSV Immunizations Under 20 Months Aged Out No longer eligible based on patient's age to complete this topic Procedures Procedure Name Priority Date/Time Associated Diagnosis Comments MRI SHOULDER LT WO CON Routine 10/27/2024 4:22 PM CDT Pain in left shoulder from Last 3 Months Results * MRI SHOULDER LT WO CON (10/27/2024 4:22 PM CDT) Anatomical Region Laterality Modality Shoulder Magnetic Resonan ce 11/03/2024 11:4 3 AM CDT Impressions 11/03/2024 12:02 PM CDT IMPRESSION: 1. Limited by motion. 2. Nondisplaced anterior inferior labral tear at approximately 5:00. Adjacent paralabral cyst measuring 10 x 7 x 7 mm. 3. Findings concerning for subacromial impingement, including spurring and narrowing and moderate bursitis. 4. 3 mm linear signal abnormality of the infraspinatus throughout its insertion could relate to a small interstitial tear artifactual. This involves approximately 20% tendon thickness. No high-grade or full- thickness tear is identified. 5. Acromioclavicular osteoarthritis. Referred By: MELIDA MARSHALL Interpreted By: Fritz Bennett MD, 11/03/2024 11:43 AM Narrative 11/03/2024 12:02 PM CDT [address] [address] EXAMINATION: MRI LEFT SHOULDER WITHOUT CONTRAST EXAM DATE: 10/27/2024 3:59 PM REASON FOR EXAM: Pain in left shoulder Shoulder pain and decreased range of motion. COMPARISON: None TECHNIQUE: Multisequence multiplanar imaging of the shoulder without intravenous contrast. FINDINGS: Limited by motion. Moderate soft tissue swelling surrounding the joint. ROTATOR CUFF: No significant rotator cuff atrophy. 3 mm linear signal abnormality near the insertion of supraspinatus. Possible interstitial tear. This involves approximately 20% tendon thickness. No high-grade or full-thickness tear is identified. BICEPS: Long head biceps anatomically positioned in the intertubercular groove. LABRUM: Nondisplaced anterior inferior labral tear at approximately 5:00. Adjacent paralabral cyst measuring 10 x 7 x 7 mm. ACROMIOCLAVICULAR: Osteoarthritis. Subacromial spurring and narrowing and moderate bursitis concerning for impingement. GLENOHUMERAL: No joint effusion or full-thickness cartilage loss is identified. BONES: No evidence of fracture or suspicious bone lesion. Procedure Note Fritz Bennett MD - 11/03/[address] [address] EXAMINATION: MRI LEFT SHOULDER WITHOUT CONTRAST EXAM DATE: 10/27/2024 3:59 PM REASON FOR EXAM: Pain in left shoulder Shoulder pain and decreased range of motion. COMPARISON: None TECHNIQUE: Multisequence multiplanar imaging of the shoulder withoutintravenous contrast. FINDINGS: Limited by motion. Moderate soft tissue swelling surrounding the joint. ROTATOR CUFF: No significant rotator cuff atrophy. 3 mm linear signal abnormality near the insertion of supraspinatus.Possible interstitial tear. This involves approximately 20% tendonthickness. No high-grade or full-thickness tear is identified. BICEPS: Long head biceps anatomically positioned in the intertubercular groove. LABRUM: Nondisplaced anterior inferior labral tear at approximately 5:00.Adjacent paralabral cyst measuring 10 x 7 x 7 mm. ACROMIOCLAVICULAR: Osteoarthritis. Subacromial spurring and narrowing and moderate bursitisconcerning for impingement. GLENOHUMERAL: No joint effusion or full-thickness cartilage loss is identified. BONES: No evidence of fracture or suspicious bone lesion. IMPRESSION: 1. Limited by motion. 2. Nondisplaced anterior inferior labral tear at approximately 5:00.Adjacent paralabral cyst measuring 10 x 7 x 7 mm. 3. Findings concerning for subacromial impingement, including spurringand narrowing and moderate bursitis. 4. 3 mm linear signal abnormality of the infraspinatus throughout itsinsertion could relate to a small interstitial tear artifactual. Thisinvolves approximately 20% tendon thickness. No high-grade orfull-thickness tear is identified. 5. Acromioclavicular osteoarthritis. Referred By: MELIDA MARSHALL Interpreted By: Fritz Bennett MD, 11/03/2024 11:43 AM Melida Marshall MD MRI Final Result from Last 3 Months Insurance [employer] Care Teams Neck Cutter Relationship Specialty Start Date End Date Charity Gamez MD [address] [place] [id number] PCP - General EMERGENCY MEDICINE 10/22/24
--- OUTSIDE RECORDS SUMMARY | 2024-12-14 18:37 | XMS_ITS | Clinical Summary ---
Author Organization [facility] Address [address] [place] [address] Care Team Providers Care Lead Retail Sales Associate Name Role Phone Nirali Liz MD Primary Care Provide r Allergies No known active allergies Medications omeprazole (PriLOSEC) 20 mg capsule Take 2 capsules (40 mg total) by mouth daily Active cholecalciferol (VITAMIN D-3) 2000 unit capsule VITAMIN D TABLET 0 Active albuterol HFA (PROVENTIL HFA,VENTOLIN HFA,PROAIR HFA) 90 mcg/actuation inhaler albuterol sulfate HFA 90 mcg/actuation aerosol inhaler Inhale 2 puffs as needed by inhalation route for 30 days. 0 Active busPIRone (BUSPAR) 10 mg tablet 1 tablet (10 mg total) daily 5 Active cetirizine (ZyrTEC) 10 mg tablet Active etonogestreL (Nexplanon) 68 mg implant Nexplanon 68 mg subdermal implant Inject 1 implant as needed by subcutaneous route as directed. 8 Active aspirin 81 mg enteric coated tablet ASPIRIN 81 MG ORAL TABLET 5 Active amitriptyline (ELAVIL) 25 mg tablet Take 1 tablet (25 mg total) by mouth nightly Active amLODIPine (NORVASC) 5 mg tablet Take 2 tablets (10 mg total) by mouth daily 30 tablet 2 Active prochlorperazin e (COMPAZINE) 5 mg tabletIndicatio ns:Nausea and Vomiting Take 1 tablet (5 mg total) by mouth every 6 (six) hours as needed for nausea or vomiting 30 tablet 2 Active Additional Information Patient not taking.Reported on 04/05/2023 ondansetron (ZOFRAN) 4 mg tablet TAKE 1 TABLET BY MOUTH EVERY 8 HOURS FOR 3 DAYS 4 Active oseltamivir (TAMIFLU) 75 mg capsule TAKE 1 CAPSULE BY MOUTH EVERY 12 HOURS FOR 5 DAYS 4 Active Active Problems Problem Noted Date Diagnosed Date Shoulder pain 09/28/2021 Shortness of breath 09/28/2021 Restless legs 09/28/2021 Recurrent dislocation of shoulder region 022 Hypersomnia 09/28/2021 Nonspecific syndrome suggestive of viral illness 09/28/2021 Abdominal pain 09/28/2021 Fatigue 09/28/2021 Disorder of bursae of shoulder region 09/28/2021 Anxiety 09/28/2021 Shoulder tendinitis 09/28/2021 Adnexal tenderness 09/28/2021 Vertigo 09/26/2021 Assessment & Plan (09/28/2021 2:57 PM CDT): Continue with meclizine prn F/u with neurology prn F/u prn Acute pain of left knee 09/13/2021 Assessment & Plan (09/13/2021 11:51 AM CDT): Xray Physical therapy, continue with RICE and anti inflammatories with food If no improvement will do an MRI F/u in 2 months Exercise-induced asthma 08/30/2021 Assessment & Plan (08/30/2021 11:28 AM CDT): Stable Continue with albuterol prn Encounter for completion of form with patient Assessment & Plan (08/30/2021 11:49 AM CDT): Forms completed Encounter for wellness examination 08/30/2021 Assessment & Plan (08/30/2021 11:50 AM CDT): Ordered CBC, cmp, lipid, HIV, hep c, TSH, and free t4 Pap smear:follows with ob F/u in 1 year for annual Depression 08/27/2014 Overview (05/31/2016): Depression Assessment & Plan (08/30/2021 11:49 AM CDT): Stable In remission Continue buspar 10mg daily F/u prn Hypertension 08/27/2014 Overview (05/31/2016): Hypertension Assessment & Plan (08/30/2021 11:50 AM CDT): Bp in the office today BP Readings from Last 1 Encounters: 08/30/21 136/84 Continue current regimen of amlodipine 20mg daily Recommend DASH diet, heart-healthy lifestyle, exercise. Discussed the risks of hypertension. F/u in 3 months Hypercholesterolemia 08/27/2014 Overview (05/31/2016): Hypercholesterolemia Assessment & Plan (09/28/2021 2:57 PM CDT): Stable / clinically quiescent. Will continue to monitor. Will hold off on statin and aspirin Work on diet and exercise first Assessment & Plan (08/30/2021 11:48 AM CDT): Stable continue to monitor Lipid panel ordered today Vitamin D deficiency 08/27/2014 Overview (05/31/2016): Vitamin D deficiency Adiposity 08/27/2014 Overview (05/31/2016): Obesity Vomiting 04/04/2009 Irritable bowel syndrome 04/04/2009 Assessment & Plan (08/30/2021 11:29 AM CDT): Stable Continue with amitriptyline 25mg at night Loss of appetite 10/05/2008 Immunizations Immunization Administration Dates Next Due DTP 04/07/1993 DTP / HiB 04/06/1992,01/26/1992,1991 Hep B, Adolescent or Pediatric 06/24/1992,1991,1991 HiB 01/05/1993 Influenza, Unspecified 09/13/2021(Deferr ed: Patient Refused),08/30/2021(Deferred: Patient Refused),02/25/2021(Deferred: Patient Refused),02/25/2021(Deferred: Patient Refused),09/25/2020(Deferred: Patient Refused),09/25/2020(Deferred: Patient Refused) MMR 01/05/1993 OPV 04/07/1993,01/26/1992,1991 Surgical History Surgery Date Site/Laterality Comments CHOLECYSTECTOMY Medical History Medical History Date Comments Depression DEPRESSION Hyperlipidemia Hyperlipidemia Hypertension Hypertension Anxiety Headache Vitamin D deficiency Asthma Family History Medical History Relation Name Comments Liver cancer Father Cancer, liver; Other Father htn, heart dise ase, alcoholism, seizures; Stroke Father stroke; Diabetes Maternal Grandmother Diabete s mellitus; Rheum arthritis Maternal Grandmother Rheu matoid arthritis; Diabetes Mother Diabetes mellit us; Hypertension Mother Hypertension; Autism Sister Thyroid disease Sister Relation Name Status Comments Father Maternal Grandmother Mother Alive Sister Alive Social History Tobacco Use Types Packs/Day Years Used Date Smoking Tobacco: Light Smoker Cigars Smokeless Tobacco: Never Tobacco Cessation:Ready to Q uit: Not Asked; Counseling Given: Not Answered Alcohol Use Standard Drinks/Week Comments Yes 0 (1 standard drink = 0.6 oz pur e alcohol) AUDIT-C Answer Date Recorded Q1: How often do you have a drink containing alc ohol? Monthly or less 08/30/2021 Q2: How many drinks containi ng alcohol do you have on a typical day when you are drinking? 1 or 2 08/30/2021 Q3: How often do you have si x or more drinks on one occasion? 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 Gender Identity Not on file Sexual Orientation Not on file Obstetrics History Last Filed Vital Signs Vital Sign Reading Time Taken Comments Blood Pressure 128/85 09/04/2023 12:02 PM CDT Pulse 70 09/04/2023 12:02 PM CDT Temperature 36.8 C (98.2 F) 09/04/2023 12:02 PM CDT Respiratory Rate 20 09/04/2023 12:0 2 PM CDT Oxygen Saturation 100% 09/04/2023 12: 02 PM CDT Inhaled Oxygen Concentration - - Weight 110.8 kg (244 lb 3.2 oz) 024 12:02 PM CDT Height 162.6 cm (5' 4.02) 09/04/2023 1 2:02 PM CDT Body Mass Index 41.9 09/04/2023 12:02 PM CDT Plan of Treatment Health Maintenance Due Date Last Done Comments Cervical Cancer Screening 1991 DTaP/Tdap/Td Vaccine (4 - Tdap) 09/16/2002 04/07/1993, 04/06/1992, 01/26/1992, Additional history exists Varicella Vaccines (1 of 2 - 13+ 2-dose series) 09/16/2004 Pneumococcal vaccine <65 (1 of 2 - PCV) 09/16/2010 HPV Vaccines (1 - 3-dose SCD M series) 09/16/2018 Regular Well Visit/Exam 18-64 08/30/2022 08/30/2021 Depression Screening 09/28/2022 09/28/2021, 09/13/2021, 08/30/2021 Covid-19 Vaccine (3 - 2024-2 6 season) 2024 05/31/2020, 04/19/2020 Influenza Vaccine (#1) 2024 Hepatitis B Screening Completed 06/24/1992 , 1991, 1991 Hepatitis C Screening Completed 08/30/2021, 015 Procedures Procedure Name Priority Date/Time Associated Diagnosis Comments HEPATITIS C ANTIBODY Routine 08/30/2021 12:07 PM CDT Healthcare maintenance Need for hepatitis C screening test from Last 3 Months or Most Recently Relevant to Health Maintenance Results * Hepatitis C antibody (08/30/2021 12:07 PM CDT) Hep C Ab Nonreactive Nonreactive [facility] (GABRIELA) Comment: Interpretive Data Nonreactive: Antibodies to HCV not detected. Does NOT exclude the possibility of recent exposure to HCV. Equivocal: Equivocal for HCV antibodies. Supplemental molecular testing will be automatically performed to determine infection status in accordance with current CDC screening recommendations. Reactive: Positive for HCV antibodies. This may represent current or past HCV infection. Supplemental molecular testing will be automatically performed to determine current infection status in accordance with current CDC screening recommendations. Interpretive data was last revised on 2019. Testing performed by: [facility], [address] [place] [address]., [id number] Blood 08/30/2021 12:0 7 PM CDT 08/30/2021 3:45 PM CDT Nirali Liz MD LAB MICROBIOL OGY - GENERAL ORDERABLES Edited Result - Final [facility] (GABRIELA) [address] [facility] Department [place] [address] from Last 3 Months or Most Recently Relevant to Health Maintenance Insurance CHOICE [facility] PPO [place] [facility] Advance Directives For more information, please contact: [phone] * Full Code (Latest Code Status on File) Date Activated Date Inactivated Comments 09/26/2021 2:07 AM 09/27/2021 12:46 AM Care Teams Lead Retail Sales Associate Relationship Specialty Start Date End Date Nirali Liz MD [address] [place] [address] [place] [address] PCP - General Family Medicine 08/30/21
--- OUTSIDE RECORDS SUMMARY | 2024-12-14 18:37 | XMS_ITS | Clinical Summary ---
Author Organization [facility] Address [address] [place] [address] Care Team Providers Care Building Construction Superintendent Name Role Phone Unavailable Primary Care Provider Unavailabl e Source Comments [facility],non-owned Affiliates and Associated Physician Practices is amultiple site organization consisting of ambulatory clinics and hospital sitesin [place], [place], [place] and [place]. This disclosure is being madepursuant to the Care Everywhere program and may not contain all information available regarding this patient. Last updated 17.[employer] [facility] Allergies No known active allergies Medications * Be aware that medications may not be up to date on this document. Alwaysverify current medications with the patient. albuterol HFA (PROVENTIL;VENT FRANKLYN;PROAIR) 108 (90 Base) MCG/ACT inhaler albuterol sulfate HFA 90 mcg/actuation aerosol inhaler Inhale 2 puffs as needed by inhalation route for 30 days. Active amLODIPine (NORVASC) 5 MG tablet amlodipine 5 mg tablet TAKE 1 TABLET BY MOUTH ONCE DAILY Active cetirizine (ZYRTEC) 10 MG tablet cetirizine 10 mg tablet Active DULoxetine (CYMBALTA) 30 MG capsule duloxetine 30 mg capsule,delayed release Take 1 capsule every day by oral route. Active etonogestrel (NEXPLANON) 68 MG implant Nexplanon 68 mg subdermal implant Inject 1 implant as needed by subcutaneous route as directed. Active fluconazole (DIFLUCAN) 150 MG tablet fluconazole 150 mg tablet Active omeprazole (PRILOSEC) 20 MG capsule omeprazole 20 mg capsule,delayed release Take 1 capsule every day by oral route. 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 Gender Identity Not on file Sexual Orientation Not on file Last Filed Vital Signs Vital Sign Reading Time Taken Comments Blood Pressure 137/92 05/23/2020 2:30 PM CDT Pulse 72 05/23/2020 2:30 PM CDT Temperature 36.3 C (97.4 F) 05/23/2020 11:25 AM CDT Respiratory Rate 21 05/23/2020 2:30 PM CDT Oxygen Saturation 97% 05/23/2020 2:30 PM CDT Inhaled Oxygen Concentration - - Weight 106.6 kg (235 lb) 05/23/2020 11:25 AM CDT Height 162.6 cm (5' 4) 05/23/2020 11:25 AM CDT Body Mass Index 40.34 05/23/2020 11:25 AM CDT Plan of Treatment Health Maintenance Due Date Last Done Comments HIV SCREENING 09/16/2006 HEPATITIS C SCREENING 09/12/2009 DTAP/TDAP/TD VACCINES (1 - Tdap) 09/16/2010 HEPATITIS B VACCINE (1 of 3 - 19+ 3-dose series) 09/16/2010 HPV VACCINE (1 - 3-dose SCDM series) 09/16/2018 DEPRESSION SCREENING 02/26/2024 COVID-19 VACCINE (1 - 2023-2 5 season) 2024 INFLUENZA VACCINE (#1) 2024 ZOSTER VACCINE (1 of 2) 09/16/2041 HIB VACCINE Aged Out No longer eligi ble based on patient's age to complete this topic MENINGOCOCCAL (Group B) VACC INE SHARED DECISION-MAKING Aged Out No longer eligibl e based on patient's age to complete this topic MENINGOCOCCAL GROUPS A/C/Y/W VACCINE Aged Out No longer eligible b ased on patient's age to complete this topic PNEUMOCOCCAL VACCINE Aged Out No long er eligible based on patient's age to complete this topic Goals Goal Patient Goal Type Associated Problems Recent Progress Patient-Stated? Author Medication Management General On track( 021 3:55 PM CDT) Rebecca Stevens RN Note: Expected end date: ongoing Interventions: Take all medications as prescribed Let your doctor know right away about any changes in your medications Make sure to request a refill of your medication at least one week prior to your last dose Insurance [facility] [place] [facility] [place] Address: [address] [id number]
[2024-12-15 07:09] LABS: HSV 1 IgG, Type Spec Non Reactive (Non Reactive); HSV 2 IgG, Type Spec Non Reactive (Non Reactive)
[2024-12-15 11:09] LABS: FSH 11.6 mIU/mL (.)
[2024-12-17 09:08] LABS: Free Testosterone (Direct) 1.5 pg/mL (0.0-4.2)
[2024-12-18 23:07] LABS: Estradiol, Sensitive 44.4 pg/mL (.)
== END 2024-12-14 16:11 | disposition home or self-care (01) ==
PROVIDERS: PCP Emergency Medicine; Visit Provider Student in an Organized Health Care Education/Training Program
DX: N91.2 Amenorrhea, unspecified (principal); Z20.2 Contact with and (suspected) exposure to infections with a predominantly sexual mode of transmission; Z11.4 Encounter for screening for human immunodeficiency virus [HIV]
CPT/HCPCS: 36415; 80074; 82670; 83001; 83036; 83525; 83527; 84402; 84403; 84443; 86593; 86695; 86696; 86703; G0432